=== PATIENT | female | born 1950 | race Caucasian/White ===

== ENCOUNTER → 2016-11-18 | Outpatient (CLI) | payer OTHER ==
[~2016-11-18] MED LIST: ACET-1311 PO; BISA10SU38 PR; CGN1 PO; CLR10 PO; DFLUDL100 PO; ERYOPO OPL; FERR325T PO; FLUC200T4 PO; GABA1CAP PO; GLIM2TAB2 PO; HLDI IM; INSDGI SC; INSDGIPEN SC; LEVO-17 PO; LEVO75TA PO; LORA-741 PO; LORA2INJ19 IM; MELA5CAP PO; MOML PO; NTRGSL/4 UT; NTRS PO; NVLGIPEN SC; OLAN-111 PO; RSPI25 IM; SENN-61 PO; SODI1ENE RE; SUPPLEMENT SHAKE PO; TGR200 PO; [UNRECOGNIZED DRUG - CODE] PO
== END ==
LOC: C.LABUPHEI 08:46
PROVIDERS: ATTEND Family Medicine
DX: E03.9 Hypothyroidism, unspecified (principal)

== ENCOUNTER 2016-12-07 07:18 | Emergency (ER) | payer OTHER ==
[~2016-12-07] VITALS: Ht 157.5 cm; Wt 47.0 kg
[~2016-12-07 07:18] MED LIST changes: -ACET-1311 PO; -BISA10SU38 PR; -DFLUDL100 PO; -ERYOPO OPL; -FLUC200T4 PO; -GABA1CAP PO; -GLIM2TAB2 PO; -HLDI IM; -INSDGI SC; -INSDGIPEN SC; -LEVO-17 PO; -LEVO75TA PO; -LORA-741 PO; -MOML PO; -NTRGSL/4 UT; -NTRS PO; -NVLGIPEN SC; -OLAN-111 PO; -SENN-61 PO; -SODI1ENE RE; -SUPPLEMENT SHAKE PO
[2016-12-07] MEDS ORDERED: LIDOCAINE/EPINEPH/TETRACAINE 1 EA SYR EXT STA (07:27)
[2016-12-07] MEDS ORDERED: LORAZEPAM 1 MG TAB PO STA (07:27)
[2016-12-07 07:28] VITALS: TEMP 36.6; Ht 157.5 cm; Wt 47.0 kg
[2016-12-07] MEDS ORDERED: LORAZEPAM 2 MG/ML 1 ML VIAL IM STA ×2 (07:38→07:59)
[2016-12-07] MEDS ORDERED: DIPHTHERIA/TETANUS/PERTUSSIS 0.5 ML SYR/VIAL IM. ONE (07:45)
--- NOTE | 2016-12-07 07:48 | EMERGENCY ROOM VISIT NOTE ---
ED Visit Note First contact with patient: 07:21 I have seen and examined this patient with Enoch Terry and generally agree with the treatment plan as discussed. Problem List Medical Problems: (1) Anxiety Status: Chronic (2) Depression Status: Chronic Current/Historical Medications Scheduled Benztropine Mesylate (Cogentin), 1 MG PO BID Bisacodyl (Dulcolax), 1 SUPP VT PRN Carbamazepine (Carbamazepine), 200 MG PO BID Ferrous Sulfate (Ferrous Sulfate), 325 MG PO BID Loratadine (Claritin), Unknown Dose PO HS Nitroglycerin (Nitrostat), 0.4 MG UT PRN Risperidone (Risperdal Consta), 25 MG IM Q2W [Santana/Cc], 2 TABS PO TID Scheduled PRN Lorazepam (Ativan), 1 ML IM Q4H PRN for Agitation Melatonin (Melatonin), 5 MG PO HS PRN for Insomnia Allergies Coded Allergies: Penicillins (Unverified Allergy, Unknown, UNKNOWN - PER OFFICE VISIT NOTE , 07/26/16) Aspirin (Unverified Adverse Reaction, Unknown, N/V PER OFFICE VISIT NOTE, 07/26/16) Phenytoin (Unverified Adverse Reaction, Unknown, N/V PER OFFICE VISIT NOTE , 07/26/16) Tramadol (Unverified Adverse Reaction, Unknown, DROWSINESS PER OFFICE VISIT NOTE, 07/26/16) Vital Signs Date Time Temp Pulse Resp B/P Pulse Ox O2 Delivery O2 Flow Rate FiO2 12/07/16 07:28 36.6 77 16 148/68 99 Room Air Departure Information Referrals Pedro Pablo Grimes (PCP) Patient Instructions My [facility]
[2016-12-07] MEDS ORDERED: LORA-741 PO (08:22)
[2016-12-07] MEDS ORDERED: RSPI25 IM (08:31)
[2016-12-07] MEDS ORDERED: FLUC200T4 PO (08:31)
--- NOTE | 2016-12-07 08:52 | DIAGNOSTIC IMAGING REPORT ---
CT HEAD WITHOUT CONTRAST (CT) CLINICAL HISTORY: Head trauma. Head pain. Scalp laceration. COMPARISON STUDY: 04/27/2016 TECHNIQUE: Axial CT of the brain is performed from the vertex to the skull base. IV contrast was not administered for this examination. CT DOSE: 1380.10 mGycm FINDINGS: No intra or extra-axial mass lesions are visualized. There is no CT evidence of acute cortical infarction. There is no evidence of midline shift. There is no acute hemorrhage. No calvarial fractures are visualized. There is posterior parietal scalp edema. There is a left frontal scalp laceration. There is no evidence of pathologic ventricular dilatation. There is a right mastoid effusion. IMPRESSION: 1. Posterior scalp edema, left frontal scalp laceration. 2. Right mastoid effusion 3. No evidence of acute intracranial injury Electronically signed by: Bob Tejada M.D. 12/07/2016 8:50 AM Dictated Date/Time: 12/07/2016 8:46 AM
[2016-12-07 10:20] VITALS: BP 128/78; PULSE 79; O2SAT 98
--- NOTE | 2016-12-07 10:34 | EMERGENCY ROOM VISIT NOTE ---
History First contact with patient: 07:21 Chief Complaint: FALL Stated Complaint: FALL, LACERATION TO HEAD History of Present Illness The patient is a 65 year old female who presents to the Emergency Room with complaints of witnessed fall at the [facility] where she lives that occurred about one hour ago. The patient was getting out of bed, and was walking he has normal. She suffered a mechanical fall laceration to her left-sided forehead. The patient has a history of schizoaffective disorder and is resistant to care at baseline. The patient does not report head, neck, chest, or extremity pain. No chest pain or shortness of breath. No palpitations before or after the event. She is not on blood thinners. The patient does not have other complaints. She is requesting food and discharge. Review of Systems More than 10 systems were reviewed and otherwise negative with the exception of history of present illness. Past Medical/Surgical History Medical Problems: (1) Anxiety (2) Arm fracture, left (3) Arthritis (4) Depression Family History No pertinent family history Social History Smoking Status: Unknown if Ever Smoked Marital Status: Housing Status: lives with significant other Occupation Status: retired Current/Historical Medications Scheduled Bisacodyl (Dulcolax), 1 SUPP DC PRN Fluconazole (Diflucan), 1 TAB PO DAILY Gabapentin (Neurontin), 1 CAP PO TID Levothyroxine Sodium (Synthroid), 1 TAB PO DAILY Loratadine (Claritin), 10 MG PO HS Nitroglycerin (Nitrostat), 0.4 MG UT PRN Risperidone (Risperdal Consta), 50 MG IM Q2W Senna (Senokot), 1 TAB PO DAILY Scheduled PRN Acetaminophen (Tylenol), 325 MG PO Q8 PRN for Pain or Fever Lorazepam (Ativan), 0.25 MG PO Q8 PRN for Anxiety/Agitation Magnesium Hydroxide (Milk Of Magnesia), 30 ML PO Q24H PRN for Constipation Allergies Coded Allergies: Penicillins (Unverified Allergy, Unknown, UNKNOWN - PER OFFICE VISIT NOTE , 12/07/16) Aspirin (Unverified Adverse Reaction, Unknown, N/V PER OFFICE VISIT NOTE, 12/07/16) Phenytoin (Unverified Adverse Reaction, Unknown, N/V PER OFFICE VISIT NOTE , 12/07/16) Tramadol (Unverified Adverse Reaction, Unknown, DROWSINESS PER OFFICE VISIT NOTE, 12/07/16) Physical Exam Vital Signs Date Time Temp Pulse Resp B/P Pulse Ox O2 Delivery O2 Flow Rate FiO2 12/07/16 07:28 36.6 77 16 148/68 99 Room Air Physical Exam VITALS: Vitals are noted on the nurse's note and reviewed by myself. Vital signs stable. GENERAL: Elderly-appearing white female who is mildly resistant to care. She is not distinctly combative, but is slightly agitated. This is reportedly her baseline. HEAD: 3.0 cm vertical laceration to the left side forehead. This does gape and will require repair. NECK: Supple without nuchal rigidity. No lymphadenopathy. No thyromegaly. Cervical spine is nontender. HEART: Regular rate and rhythm without murmurs gallops or rubs. LUNGS: Clear to auscultation bilaterally without wheezes, rales or rhonchi. No retractions or accessory muscle use. ABDOMEN: Positive normal bowel sounds x 4. Soft, nontender, without masses or organomegaly. No guarding or rebound tenderness. MUSCULOSKELETAL: No muscle atrophy, erythema, or edema noted. Full range of motion without joint tenderness in all extremities. NEURO: Patient was alert and oriented to person place and time. CN II through XII grossly intact. No focal neurological deficits Medical Decision & Procedures ER Provider Diagnostic Interpretation: CT HEAD WITHOUT CONTRAST (CT) CLINICAL HISTORY: Head trauma. Head pain. Scalp laceration. COMPARISON STUDY: 04/27/2016 TECHNIQUE: Axial CT of the brain is performed from the vertex to the skull base. IV contrast was not administered for this examination. CT DOSE: 1380.10 mGycm FINDINGS: No intra or extra-axial mass lesions are visualized. There is no CT evidence of acute cortical infarction. There is no evidence of midline shift. There is no acute hemorrhage. No calvarial fractures are visualized. There is posterior parietal scalp edema. There is a left frontal scalp laceration. There is no evidence of pathologic ventricular dilatation. There is a right mastoid effusion. IMPRESSION: 1. Posterior scalp edema, left frontal scalp laceration. 2. Right mastoid effusion 3. No evidence of acute intracranial injury Medications Administered Medications (Trade) Dose Ordered Sig/Nicci Route Start Time Stop Time Status Last Admin Dose Admin Tetracaine/ Epinephrine/ Lidocaine (L.e.t. Gel 4%/ 1:100/0.5%) 1 ea NOW STAT EXT 12/07/16 07:27 12/07/16 07:30 DC 12/07/16 07:54 1 EA Lorazepam (Ativan Inj) 1 mg NOW STAT IM 12/07/16 07:38 12/07/16 07:39 DC 12/07/16 07:53 1 MG Diphtheria/ Pertussis/Tetanus Vacc (Adacel Inj) 0.5 ml ONCE ONCE IM. 12/07/16 07:45 12/07/16 07:46 DC 12/07/16 07:54 0.5 ML Procedure Laceration repair. Patient elects to have their laceration repaired. Verbal consent was obtained to perform the procedure. There is an abundance of materials available for the procedure. Patient is not allergic to latex. Using sterile technique the wound was cleaned with Betadine. The area was sterilely draped. LET gel was used to anesthetize the forehead laceration. Once the patient was anesthetized, the wound was copiously irrigated under pressure with sterile saline. The wound was explored and there were no deep structures injured such as tendons, bone, or significant blood vessels. The laceration was repaired using 4 simple interrupted 5-0 nylon sutures with the wound edges being well approximated. Hemostasis was achieved. The area was cleaned with sterile saline and dressed with bacitracin ointment and bandage. The patient was given a tetanus booster. Patient tolerated the procedure well without complications. Blood loss was negligible. ED Course Physical exam and history were performed. Nursing notes and EMR were reviewed. Patient appears to have suffered a mechanical fall with laceration to her head. The patient does not appear toxic and is somewhat resistant to care. This is her baseline evidently. I did provide her 1 mg IM Ativan for comfort. After this she was able to rest comfortably for a CT scan of her head. Let gel was placed on her laceration, and this was repaired as above. Her tetanus was updated. The case was discussed with my attending physician, Dr. Mason, who also and apparently evaluated the patient. The patient's CT scan of the head does not show intracranial bleed, fracture, or other significant acute findings. The patient was able to rest very comfortably here in the ER. She was provided a meal tray and was able to eat and drink without difficulty. The patient remained in stable condition for several hours without any worsening of her symptoms. She is felt to be stable for transport back to [facility]. The patient will need a recheck of her condition in a few days. She was otherwise invited back to the ER with any new , worsening, or concerning symptoms. The chart was completed utilizing F2[employer] Speech Voice Recognition Software. Grammatical errors, random word insertions, pronoun errors, and incomplete sentences are an occasional consequence of this system due to software limitations, ambient noise, and hardware issues. Any formal questions or concerns about the content, text, or information contained within the body of this dictation should be directly addressed to the provider for clarification. . Medical Decision Differential diagnosis: Etiologies such as concussion, contusion, fracture, cardiopulmonary event, mechanical fall, subdural hematoma, epidural hematoma, intraparenchymal hemorrhage, as well as other traumatic pathologies were entertained. Impression Primary Impression: Fall Additional Impression: Scalp laceration Departure Information Dispostion Home / Self-Care Condition GOOD Forms HOME CARE DOCUMENTATION FORM, IMPORTANT VISIT INFORMATION Patient Instructions My [facility] Additional Instructions You were seen and evaluated today on an emergency basis only. This is not a substitute for, or an effort to provide, complete comprehensive medical care. It is not possible to recognize and treat all injuries or illnesses in a single emergency department visit. For this reason it is recommended that you followup with your primary care physician in the next 2-3 days for recheck of your condition. Keep wound clean and dry. Do not allow any crusting or dried blood to accumulate on sutures. If this occurs, use a mild soap/water on a Q-tip to clean the wound. Do not use Peroxide to clean the wound as this can delay healing Use an antibiotic ointment like Bacitracin for 3-4 days, then let wound dry. You may bathe and shower as normal, but DO NOT SOAK the wound. Suture removal in about 7 days with your Family Doctor or in the ER. Return sooner for any signs of infection, increasing redness, swelling, or drainage. You are welcome to return to the emergency department anytime with new, worsening, or concerning symptoms. Problem Qualifiers
[2017-01-02] MEDS ORDERED: ACET-1311 PO (08:22)
[2017-01-02] MEDS ORDERED: SENN-61 PO (08:22)
[2017-01-02] MEDS ORDERED: GABA1CAP PO (08:22)
[2017-01-02] MEDS ORDERED: CLR10 PO (08:31)
[2017-01-02] MEDS ORDERED: MOML PO (08:31)
[2017-01-02] MEDS ORDERED: LEVO75TA PO (08:31)
[2017-05-11] MEDS ORDERED: CLR10 PO (11:14)
[2017-05-11] MEDS ORDERED: GLIM2TAB2 PO (11:14)
[2017-05-11] MEDS ORDERED: INSDGI SC (11:14)
[2017-05-11] MEDS ORDERED: LEVO-17 PO (11:14)
[2017-05-13] MEDS ORDERED: NVLGIPEN SC (08:52)
[2017-05-13] MEDS ORDERED: OLAN-111 PO (08:52)
[2017-05-13] MEDS ORDERED: LORA-741 PO (08:52)
[2017-05-13] MEDS ORDERED: INSDGIPEN SC (08:52)
== END 2016-12-07 10:20 | disposition home or self-care (01) ==
LOC: EDBD 07:18 → C.EDB 07:19
DX: S01.81XA Laceration without foreign body of other part of head, initial encounter (principal); W19.XXXA Unspecified fall, initial encounter; Z23 Encounter for immunization; F41.9 Anxiety disorder, unspecified; F32.9 Major depressive disorder, single episode, unspecified; M19.90 Unspecified osteoarthritis, unspecified site; Z87.81 Personal history of (healed) traumatic fracture; Z79.899 Other long term (current) drug therapy; Z88.0 Allergy status to penicillin; Z88.6 Allergy status to analgesic agent; Z88.8 Allergy status to other drugs, medicaments and biological substances

== ENCOUNTER 2017-01-02 12:03 | Inpatient (IN) | payer OTHER ==
[~2017-01-02] VITALS: Ht 160 cm; Wt 41.3 kg
[~2017-01-02 12:03] MED LIST changes: +ACET-1311 PO; -CGN1 PO; -FERR325T PO; +FLUC200T4 PO; +GABA1CAP PO; +LEVO75TA PO; +LORA-741 PO; -LORA2INJ19 IM; -MELA5CAP PO; +MOML PO; +SENN-61 PO; -TGR200 PO; -[UNRECOGNIZED DRUG - CODE] PO
[2017-01-02] MEDS ORDERED: SUPPLEMENT SHAKE PO (12:28)
[2017-01-02] MEDS ORDERED: SODI1ENE RE (12:32)
[2017-01-02] MEDS ORDERED: HLDI IM (12:33)
--- NOTE | 2017-01-02 13:29 | EMERGENCY ROOM VISIT NOTE ---
History Report prepared by Gary: Eleazar Mcdonald Under the Supervision of: Dr. Thang Rankin M.D. First contact with patient: 13:18 Chief Complaint: OTHER COMPLAINT Stated Complaint: DECREASE FOOD INTAKE History of Present Illness The patient is a 66 year old female who presents to the Emergency Room with complaints of persistent decreased food intake the past few days. She is a resident at [facility]. Per the nursing staff, they were told that the patient fell this morning, and bumped her nose. Her tongue has also been swollen, and the physician at [facility] looked at it, and agreed that the patient should be seen here. Per the patient, her nose hurts a bit from the fall. She denies any abdominal pain, chest pain, or hip pain. Source of History: patient, [facility] notes, nursing staff Onset: Past few days Position: other (global - decreased food intake) Timing: other (persistent) Associated Symptoms: No abdominal pain, No chest pain Note: Associated symptoms: Fell this morning, nose pain from fall. Denies any hip pain. Review of Systems See HPI for pertinent positives & negatives. A total of 10 systems reviewed and were otherwise negative. Past Medical & Surgical Medical Problems: (1) Anxiety (2) Arm fracture, left (3) Arthritis (4) Depression Family History No pertinent family history Social History Smoking Status: Unknown if Ever Smoked Marital Status: Housing Status: [facility] Occupation Status: retired Current/Historical Medications Scheduled Bisacodyl (Dulcolax), 1 SUPP TN PRN Gabapentin (Neurontin), 1 CAP PO TID Levothyroxine Sodium (Synthroid), 1 TAB PO DAILY Loratadine (Claritin), 10 MG PO HS Nitroglycerin (Nitrostat), 0.4 MG UT PRN Senna (Senokot), 1 TAB PO DAILY Sodium Phosphates (Fleet Enema Six Pack), 1 DOSE RE UD [supplement shake], 1 DOSE PO TID Scheduled PRN Acetaminophen (Tylenol), 650 MG PO Q6 PRN for Pain or Fever Haloperidol Lactate (Haloperidol Lactate), 1 MG IM Q4 PRN for Agitation Magnesium Hydroxide (Milk Of Magnesia), 30 ML PO Q24H PRN for Constipation Allergies Coded Allergies: Penicillins (Unverified Allergy, Unknown, UNKNOWN - PER OFFICE VISIT NOTE , 01/02/17) Aspirin (Unverified Adverse Reaction, Unknown, N/V PER OFFICE VISIT NOTE, 01/02/17) Phenytoin (Unverified Adverse Reaction, Unknown, N/V PER OFFICE VISIT NOTE , 01/02/17) Tramadol (Unverified Adverse Reaction, Unknown, DROWSINESS PER OFFICE VISIT NOTE, 01/02/17) Physical Exam Vital Signs Date Time Temp Pulse Resp B/P Pulse Ox O2 Delivery O2 Flow Rate FiO2 01/02/17 15:44 60 01/02/17 15:16 61 22 148/79 97 Room Air 01/02/17 14:31 66 21 158/76 96 Room Air 01/02/17 13:35 37.3 01/02/17 12:10 75 01/02/17 12:09 37.0 78 16 137/74 95 Room Air Physical Exam GENERAL: Patient is chronically unwell appearing and in no distress. HEENT: Normocephalic atraumatic, mucous membranes moist, no nasal congestion, no scleral icterus. Has swelling of tongue and drooling, No difficulty breathing. White plaque over most of tongue. Slight bruise over bridge of nose. NECK: No stridor, no adenopathy, no meningismus, trachea is midline. LUNGS: No dyspnea. Clear to auscultation and equal bilaterally. No wheeze, no rhonchi. HEART: Regular rate and rhythm. No murmurs, rubs, gallops appreciated. ABDOMEN: Soft, nontender, bowel sounds positive, no masses appreciated, no peritonitis. BACK: No midline tenderness, no CVA tenderness EXTREMITIES: Normal motion all extremities, no cyanosis, no edema. NEUROLOGIC: Patient with dementia. no acute motor or sensory deficits, no focal weakness, cranial nerves grossly intact. SKIN: No rash, no jaundice, no diaphoresis. Medical Decision & Procedures ER Provider Diagnostic Interpretation: Radiology results and stated below per my review and radiologist interpretation: HEAD CT NONCONTRAST CT DOSE: 638.56 mGycm HISTORY: fall TECHNIQUE: Multiaxial CT images of the head were performed without the use of intravenous contrast. Automated exposure control was utilized for this study. Comparison: Head CT 12/07/2016. Findings: Persistent small right mastoid effusion. The paranasal sinuses and left mastoid air cells are clear. Mild posterior scalp swelling has improved. Mild nasal soft tissue swelling. The calvarium and skull base are intact. The ventricles and sulci are within normal limits. There is no mass, hematoma, midline shift, or acute infarct. Mild nasal bone deformity is likely old. Impression: No acute intracranial abnormality. Additional findings as described above. Electronically signed by: Clay Bay M.D. 01/02/2017 2:35 PM Dictated Date/Time: 01/02/2017 2:28 PM SINGLE VIEW CHEST CLINICAL HISTORY: Fall. FINDINGS: An AP, portable, upright chest radiograph is compared to study dated 07/26/2016. The examination is degraded by portable technique and patient rotation. The cardiomediastinal silhouette is unremarkable. There is atherosclerotic calcification of the thoracic aorta. Chronic interstitial thickening and mild apical scarring are unchanged. The lungs and pleural spaces are otherwise clear. No pneumothorax is seen. The skeletal structures are osteopenic. The bony thorax is grossly intact. Cholecystectomy clips are seen in the right upper quadrant. IMPRESSION: No active disease in the chest. Electronically signed by: Jonathon Khalil M.D. 01/02/2017 2:11 PM Dictated Date/Time: 01/02/2017 2:09 PM PELVIS 1 OR 2 VIEW ROUTINE CLINICAL HISTORY: / Pain. Trauma. COMPARISON: None. DISCUSSION: The bones and joint spaces appear intact. There is no evidence of fracture, dislocation or bony disease. There is no evidence for soft tissue swelling. IMPRESSION: Negative study. Electronically signed by: Kraig Whaley M.D. 01/02/2017 2:08 PM Dictated Date/Time: 01/02/2017 2:07 PM Laboratory Results 01/02/17 12:18 Red Blood Count 4.10, Mean Corpuscular Volume 85.6, Mean Corpuscular Hemoglobin 28.8, Mean Corpuscular Hemoglobin Concent 33.6, Mean Platelet Volume 12.5, Neutrophils (%) (Auto) 65.5, Lymphocytes (%) (Auto) 22.6, Monocytes (%) (Auto) 9.8, Eosinophils (%) (Auto) 1.4, Basophils (%) (Auto) 0.5, Neutrophils # (Auto) 3.62, Lymphocytes # (Auto) 1.25, Monocytes # (Auto) 0.54, Eosinophils # (Auto) 0.08, Basophils # (Auto) 0.03 01/02/17 12:18 Test 01/02/17 12:18 White Blood Count 5.53 K/uL (4.8-10.8) Red Blood Count 4.10 M/uL (4.2-5.4) Hemoglobin 11.8 g/dL (12.0-16.0) Hematocrit 35.1 % (37-47) Mean Corpuscular Volume 85.6 fL (80-100) Mean Corpuscular Hemoglobin 28.8 pg (25-34) Mean Corpuscular Hemoglobin Concent 33.6 g/dl (32-36) Platelet Count 137 K/uL (130-400) Mean Platelet Volume 12.5 fL (7.4-10.4) Neutrophils (%) (Auto) 65.5 % Lymphocytes (%) (Auto) 22.6 % Monocytes (%) (Auto) 9.8 % Eosinophils (%) (Auto) 1.4 % Basophils (%) (Auto) 0.5 % Neutrophils # (Auto) 3.62 K/uL (1.4-6.5) Lymphocytes # (Auto) 1.25 K/uL (1.2-3.4) Monocytes # (Auto) 0.54 K/uL (0.11-0.59) Eosinophils # (Auto) 0.08 K/uL (0-0.5) Basophils # (Auto) 0.03 K/uL (0-0.2) RDW Standard Deviation 42.4 fL (36.4-46.3) RDW Coefficient of Variation 13.5 % (11.5-14.5) Immature Granulocyte % (Auto) 0.2 % Immature Granulocyte # (Auto) 0.01 K/uL (0.00-0.02) Anion Gap 10.0 mmol/L (3-11) Est Creatinine Clear Calc Drug Dose 29.6 ml/min Estimated GFR () 49.2 Estimated GFR (Non- 42.4 BUN/Creatinine Ratio 19.8 (10-20) Calcium Level 9.8 mg/dl (8.5-10.1) Magnesium Level 2.3 mg/dl (1.8-2.4) Total Bilirubin 0.5 mg/dl (0.2-1) Direct Bilirubin 0.1 mg/dl (0-0.2) Aspartate Amino Transf (AST/SGOT) 20 U/L (15-37) Alanine Aminotransferase (ALT/SGPT) 31 U/L (12-78) Alkaline Phosphatase 83 U/L (45-117) C-Reactive Protein < 0.29 mg/dl (0-0.29) Total Protein 6.5 gm/dl (6.4-8.2) Albumin 3.5 gm/dl (3.4-5.0) Laboratory results as reviewed by me. Medications Administered Medications (Trade) Dose Ordered Sig/Nicci Route Start Time Stop Time Status Last Admin Dose Admin Fluconazole/ Sodium Chloride/ Prmx (Diflucan IV/ Premixed Nss) 100 ml @ 100 mls/hr NOW STAT IV 01/02/17 14:49 01/02/17 15:48 DC 01/02/17 15:14 100 MLS/HR ECG Indication: other (tongue swelling) Rate (beats per minute): 67 Rhythm: normal sinus Findings: no acute ischemic change, no ectopy, other (QTC of 420) ED Course 1321: The patient was evaluated in room A2. A complete history and physical exam was performed. 1343: I reevaluated the patient and she is stable. 1527: I discussed the patient with Dr. Eric WHITTINGTON hospitalist - he will evaluate the patient for further treatment. 1528: Upon reevaluation, the patient is stable. Discussed results and treatment plan with the patient. She verbalized understanding and agreement with the treatment plan. The patient will be evaluated for further management. Medical Decision Differential: Sepsis, Infectious (UTI/Pneumonia/Meningitis/etc), Metabolic/ Electrolyte Abnormality, Cardiac, Hepatic, Endocrine, Toxicologic, Neurologic, amongst other pathologies entertained. 66 [facility] old female [facility] because she has stopped eating and now has increasing tongue swelling. Reportedly fall yesterday resulting in bruise over bridge of nose. CT head negative for acute findings as are CXR and pelvis xray. Labs unremarkable. She is drooling with a large tongue that appears to have plaque all over it consistent with thrush. She will be unable to swallow anything. She is maintaining airway without issue. She does not appear to be having acute allergic reaction and I suspect swelling is more due to inflammation due to thrush. Could be angioedema but literature would point to no clear emergent treatment unless intubation which she does not require currently. Will bring in for further evaluation and treatment. Consults Time Called: 1520 Consulting Physician: Dr. Eric WHITTINGTON hospitalist Returned Call: [phone] I discussed the patient with Dr. Eric WHITTINGTON hospitalist - he will evaluate the patient for further treatment. Impression Primary Impression: Oral candidiasis Additional Impressions: Tongue swelling Inability to swallow Fall Scribe Attestation The scribe's documentation has been prepared under my direction and personally reviewed by me in its entirety. I confirm that the note above accurately reflects all work, treatment, procedures, and medical decision making performed by me. Departure Information Dispostion Being Evaluated By Hospitalist Referrals Pedro Pablo Grimes (PCP) Patient Instructions My [facility] Problem Qualifiers Additional Impressions: Fall Encounter type: initial encounter Qualified Codes: W19.XXXA - Unspecified fall, initial encounter
[2017-01-02 13:42] LABS: BASO % 0.5 %; BASO ABS # 0.03 K/uL (0-0.2); COMPLETE YES; EOS % 1.4 %; HEMATOCRIT 35.1 % (37-47); IG% 0.2 %; LYMPH % 22.6 %; LYMPH ABS # 1.25 K/uL (1.2-3.4); MEAN CELL VOLUME 85.6 fL (80-100); MEAN CORPUSCULAR HEMOGLOBIN 28.8 pg (25-34); MEAN CORPUSCULAR HGB CONC 33.6 g/dl (32-36); MEAN PLATELET VOLUME 12.5 fL (7.4-10.4); MONO % 9.8 %; NEUT % 65.5 %; PLATELET COUNT 137 K/uL (130-400); WHITE BLOOD COUNT 5.53 K/uL (4.8-10.8)
[2017-01-02 13:52] LABS: ALT/SGPT 31 U/L (12-78); AST/SGOT 20 U/L (15-37); BLOOD UREA NITROGEN 26 mg/dl (7-18); BUN/CREATININE RATIO 19.8 (10-20); C-REACTIVE PROTEIN < 0.29 mg/dl (0-0.29); CALCIUM 9.8 mg/dl (8.5-10.1); CARBON DIOXIDE 27 mmol/L (21-32); CHLORIDE 104 mmol/L (98-107); GLUCOSE 281 mg/dl (70-99); MAGNESIUM 2.3 mg/dl (1.8-2.4); POTASSIUM 3.8 mmol/L (3.5-5.1); SODIUM 141 mmol/L (136-145)
[2017-01-02 13:54] LABS: ALKALINE PHOSPHATASE 83 U/L (45-117)
[2017-01-02] MEDS ORDERED: NTRGSL/4 UT (14:01)
--- NOTE | 2017-01-02 14:09 | DIAGNOSTIC IMAGING REPORT ---
PELVIS 1 OR 2 VIEW ROUTINE CLINICAL HISTORY: / Pain. Trauma. COMPARISON: None. DISCUSSION: The bones and joint spaces appear intact. There is no evidence of fracture, dislocation or bony disease. There is no evidence for soft tissue swelling. IMPRESSION: Negative study. Electronically signed by: Kraig Whaley M.D. 01/02/2017 2:08 PM Dictated Date/Time: 01/02/2017 2:07 PM
--- NOTE | 2017-01-02 14:12 | DIAGNOSTIC IMAGING REPORT ---
SINGLE VIEW CHEST CLINICAL HISTORY: Fall. FINDINGS: An AP, portable, upright chest radiograph is compared to study dated 07/26/2016. The examination is degraded by portable technique and patient rotation. The cardiomediastinal silhouette is unremarkable. There is atherosclerotic calcification of the thoracic aorta. Chronic interstitial thickening and mild apical scarring are unchanged. The lungs and pleural spaces are otherwise clear. No pneumothorax is seen. The skeletal structures are osteopenic. The bony thorax is grossly intact. Cholecystectomy clips are seen in the right upper quadrant. IMPRESSION: No active disease in the chest. Electronically signed by: Jonathon Khalil M.D. 01/02/2017 2:11 PM Dictated Date/Time: 01/02/2017 2:09 PM
--- NOTE | 2017-01-02 14:36 | DIAGNOSTIC IMAGING REPORT ---
HEAD CT NONCONTRAST CT DOSE: 638.56 mGycm HISTORY: fall TECHNIQUE: Multiaxial CT images of the head were performed without the use of intravenous contrast. Automated exposure control was utilized for this study. Comparison: Head CT 12/07/2016. Findings: Persistent small right mastoid effusion. The paranasal sinuses and left mastoid air cells are clear. Mild posterior scalp swelling has improved. Mild nasal soft tissue swelling. The calvarium and skull base are intact. The ventricles and sulci are within normal limits. There is no mass, hematoma, midline shift, or acute infarct. Mild nasal bone deformity is likely old. Impression: No acute intracranial abnormality. Additional findings as described above. Electronically signed by: Clay Bay M.D. 01/02/2017 2:35 PM Dictated Date/Time: 01/02/2017 2:28 PM
[2017-01-02] MEDS ORDERED: FLUCONAZOLE / NSS 200 MG in PREMIXED NSS 100 ML IV STA (14:49)
[2017-01-02] MEDS ORDERED: BISA10SU38 PR (16:10)
[2017-01-02] MEDS ORDERED: NITROGLYCERIN 0.4 MG SL PER TAB CHARGE UT PRN (17:00)
[2017-01-02] MEDS ORDERED: ACETAMINOPHEN 325 MG TAB PO PRN (17:00)
[2017-01-02] MEDS ORDERED: POLYETHYLENE (MIRALAX) 17 GM PACK PO PRN (17:00)
[2017-01-02] MEDS ORDERED: HALOPERIDOL LACTATE 5 MG/ML 1 ML VIAL IM PRN (17:00)
[2017-01-02] MEDS ORDERED: MAGNESIUM HYDROXIDE SUSP 30 ML UDC PO PRN ×2 (17:00)
[2017-01-02 18:02] LABS: INR 1.1 (0.9-1.1); PROTHROMBIN TIME (PATIENT) 11.3 SECONDS (9.0-12.0)
--- NOTE | 2017-01-02 18:08 | History and Physical ---
History & Physical Date & Time of Service: Jan 02, 2017 at 17:08 Chief Complaint: Decrease Food Intake Primary Care Physician: Pedro Pablo Grimes History of Present Illness Source: patient This is a 66 y/o male presented to the hospital from [facility] complaining of decrease appetite. Most of the history was obtain for the [facility] nurse and ED notes. According to the nurse per past few days her PO intake has decreased. The nurse was informed that she fell down this morning and hit her nose. Her tongue has also been swollen and the patient was examined by the physician and agreed to send to the hospital. Patient denies any pain when seen by me. She denies any pain with swallowing, throat pain, dysphagia, nausea, or vomiting. For most of my questions, she would just stare at me without answering anything. Head CT, CXR and plevic X-ray performed at the ED are unremarkable. Past Medical/Surgical History Medical Problems: (1) Anxiety Status: Chronic (2) Depression Status: Chronic (3) Alzheimer's disease (4) Epilepsy with seizure (5) CKD (6) HTN (7) HLD (8) Hypothyroidism Family History No pertinent family history Social History Smoking Status: Unknown if Ever Smoked Marital Status: Occupational Status: retired Allergies Coded Allergies: Penicillins (Unverified Allergy, Unknown, UNKNOWN - PER OFFICE VISIT NOTE , 01/02/17) Aspirin (Unverified Adverse Reaction, Unknown, N/V PER OFFICE VISIT NOTE, 01/02/17) Phenytoin (Unverified Adverse Reaction, Unknown, N/V PER OFFICE VISIT NOTE , 01/02/17) Tramadol (Unverified Adverse Reaction, Unknown, DROWSINESS PER OFFICE VISIT NOTE, 01/02/17) Home Medications Scheduled Bisacodyl (Dulcolax), 1 SUPP AK PRN Gabapentin (Neurontin), 1 CAP PO TID Levothyroxine Sodium (Synthroid), 1 TAB PO DAILY Loratadine (Claritin), 10 MG PO HS Nitroglycerin (Nitrostat), 0.4 MG UT PRN Senna (Senokot), 1 TAB PO DAILY Sodium Phosphates (Fleet Enema Six Pack), 1 DOSE RE UD [supplement shake], 1 DOSE PO TID Scheduled PRN Acetaminophen (Tylenol), 650 MG PO Q6 PRN for Pain or Fever Haloperidol Lactate (Haloperidol Lactate), 1 MG IM Q4 PRN for Agitation Magnesium Hydroxide (Milk Of Magnesia), 30 ML PO Q24H PRN for Constipation Review of Systems Couldn't obtain full ROS given patient's poor mentation Constitutional: No fever Respiratory: No cough, No shortness of breath Abdomen: No pain Physical Exam Vital Signs Date Time Temp Pulse Resp B/P Pulse Ox O2 Delivery O2 Flow Rate FiO2 01/02/17 15:44 60 01/02/17 15:16 61 22 148/79 97 Room Air 01/02/17 14:31 66 21 158/76 96 Room Air 01/02/17 13:35 37.3 01/02/17 12:10 75 01/02/17 12:09 37.0 78 16 137/74 95 Room Air General Appearance: WD/WN, no apparent distress Head: normocephalic, atraumatic Eyes: PERRL, sclerae normal ENT: + pertinent finding (Bruise was noted on the bridge of the nose, lips are slightly swollen, white plaque noted over the tongue.) Neck: supple, trachea midline Respiratory/Chest: chest non-tender, lungs clear, normal breath sounds, no respiratory distress, no accessory muscle use Cardiovascular: regular rate, rhythm, no edema Abdomen/GI: normal bowel sounds, non tender, soft Extremities/Musculoskelatal: normal inspection, no pedal edema, non-tender Neurologic/Psych: alert, + disoriented Skin: normal color, warm/dry Diagnostics Laboratory Results Results Past 24 Hours Test 01/02/17 12:18 Range/Units White Blood Count 5.53 4.8-10.8 K/uL Red Blood Count 4.10 4.2-5.4 M/uL Hemoglobin 11.8 12.0-16.0 g/dL Hematocrit 35.1 37-47 % Mean Corpuscular Volume 85.6 80-100 fL Mean Corpuscular Hemoglobin 28.8 25-34 pg Mean Corpuscular Hemoglobin Concent 33.6 32-36 g/dl Platelet Count 137 130-400 K/uL Mean Platelet Volume 12.5 7.4-10.4 fL Neutrophils (%) (Auto) 65.5 % Lymphocytes (%) (Auto) 22.6 % Monocytes (%) (Auto) 9.8 % Eosinophils (%) (Auto) 1.4 % Basophils (%) (Auto) 0.5 % Neutrophils # (Auto) 3.62 1.4-6.5 K/uL Lymphocytes # (Auto) 1.25 1.2-3.4 K/uL Monocytes # (Auto) 0.54 0.11-0.59 K/uL Eosinophils # (Auto) 0.08 0-0.5 K/uL Basophils # (Auto) 0.03 0-0.2 K/uL RDW Standard Deviation 42.4 36.4-46.3 fL RDW Coefficient of Variation 13.5 11.5-14.5 % Immature Granulocyte % (Auto) 0.2 % Immature Granulocyte # (Auto) 0.01 0.00-0.02 K/uL Sodium Level 141 136-145 mmol/L Potassium Level 3.8 3.5-5.1 mmol/L Chloride Level 104 98-107 mmol/L Carbon Dioxide Level 27 21-32 mmol/L Anion Gap 10.0 3-11 mmol/L Blood Urea Nitrogen 26 7-18 mg/dl Creatinine 1.30 0.60-1.20 mg/dl Est Creatinine Clear Calc Drug Dose 29.6 ml/min Estimated GFR () 49.2 Estimated GFR (Non- 42.4 BUN/Creatinine Ratio 19.8 10-20 Random Glucose 281 70-99 mg/dl Calcium Level 9.8 8.5-10.1 mg/dl Magnesium Level 2.3 1.8-2.4 mg/dl Total Bilirubin 0.5 0.2-1 mg/dl Direct Bilirubin 0.1 0-0.2 mg/dl Aspartate Amino Transf (AST/SGOT) 20 15-37 U/L Alanine Aminotransferase (ALT/SGPT) 31 12-78 U/L Alkaline Phosphatase 83 45-117 U/L C-Reactive Protein < 0.29 0-0.29 mg/dl Total Protein 6.5 6.4-8.2 gm/dl Albumin 3.5 3.4-5.0 gm/dl Diagnostic Radiology Patient Name: KANDI CUNNINGHAM Unit Number: [id number] Dictated: 01/02/171427 Transcribed: 01/02/171427 YUE Printed Date/Time: [~ rep prt dt]/[~ rep prt tm] [~ rep ct labl] - [~ rep ct ivnm] [facility] [place] [place] [address] Dictated: 01/02/178 Transcribed: 01/02/17 142 [facility] Printed Date/Time: [~ rep prt dt]/[~ rep prt tm] [~ rep ct labl] - [~ rep ct ivnm] HEAD CT NONCONTRAST CT DOSE: 638.56 mGycm HISTORY: fall TECHNIQUE: Multiaxial CT images of the head were performed without the use of intravenous contrast. Automated exposure control was utilized for this study. Comparison: Head CT 12/07/2016. Findings: Persistent small right mastoid effusion. The paranasal sinuses and left mastoid air cells are clear. Mild posterior scalp swelling has improved. Mild nasal soft tissue swelling. The calvarium and skull base are intact. The ventricles and sulci are within normal limits. There is no mass, hematoma, midline shift, or acute infarct. Mild nasal bone deformity is likely old. Impression: No acute intracranial abnormality. Additional findings as described above. Electronically signed by: Clay [place] M.D. 01/02/2017 2:35 PM Dictated Date/Time: 01/02/2017 2:28 PM The status of this report is Signed. Draft = Not yet reviewed or approved by Radiologist. Signed = Reviewed and approved by Radiologist. <AttendingPhy></AttendingPhy> <FamilyPhy>Heir Sydneymariah</FamilyPhy> < PrimaryPhy>HeartPedro Pablo santacruz</PrimaryPhy> <UnitNumber>[id number]</UnitNumber > <VisitNumber>[id number]</VisitNumber> <PatientName>KANDI CUNNINGHAM</ PatientName> <DateOfBirth>1950</DateOfBirth> <Location>[facility]</Location> < ServiceDate>01/02/17</ServiceDate> <MNE>ESINDI</MNE> <OrderingPhy>Thang Rankin M.D.</OrderingPhy> <OrderingPhyMNE>f rep ord dr johnson</OrderingPhyMNE> < DictatingPhyMNE>f rep dict dr johnson</DictatingPhyMNE> <CCListMNE>f rep ct mne</ CCListMNE> <AdmittingPhyMNE>f pt admit dr johnson</AdmittingPhyMNE> <AttendingPhyMNE >f pt attend dr johnson</AttendingPhyMNE> <ConsultingPhyMNE>f pt consult dr johnson</ConsultingPhyMNE> <FamilyPhyMNE>f pt fam dr johnson</FamilyPhyMNE> <OtherPhyMNE>f pt other dr johnson</OtherPhyMNE> < PrimaryPhyMNE>f pt prim care dr johnson</PrimaryPhyMNE> <ReferringPhyMNE>f pt referring dr johnson</ReferringPhyMNE> Patient Name: KANDI CUNNINGHAM Unit Number: [id number] Dictated: 01/02/171408 Transcribed: 01/02/171408 EV Printed Date/Time: [~ rep prt dt]/[~ rep prt tm] [~ rep ct labl] - [~ rep ct ivnm] [facility] Radiology Department [place] [id number] Dictated: 01/02/171408 Transcribed: 01/02/171408 EV Printed Date/Time: [~ rep prt dt]/[~ rep prt tm] [~ rep ct labl] - [~ rep ct ivnm] SINGLE VIEW CHEST CLINICAL HISTORY: Fall. FINDINGS: An AP, portable, upright chest radiograph is compared to study dated 07/26/2016. The examination is degraded by portable technique and patient rotation. The cardiomediastinal silhouette is unremarkable. There is atherosclerotic calcification of the thoracic aorta. Chronic interstitial thickening and mild apical scarring are unchanged. The lungs and pleural spaces are otherwise clear. No pneumothorax is seen. The skeletal structures are osteopenic. The bony thorax is grossly intact. Cholecystectomy clips are seen in the right upper quadrant. IMPRESSION: No active disease in the chest. Electronically signed by: Jonathon Khalil M.D. 01/02/2017 2:11 PM Dictated Date/Time: 01/02/2017 2:09 PM The status of this report is Signed. Draft = Not yet reviewed or approved by Radiologist. Signed = Reviewed and approved by Radiologist. <AttendingPhy></AttendingPhy> <FamilyPhy>Pedro Pablo Grimes</FamilyPhy> < PrimaryPhy>[employer]ear[employer]ександр[employer]</PrimaryPhy> <UnitNumber>[id number]</UnitNumber > <VisitNumber>[id number]</VisitNumber> <PatientName>KANDI CUNNINGHAM</ PatientName> <DateOfBirth>1950</DateOfBirth> <Location>[facility]</Location> < ServiceDate>01/02/17</ServiceDate> <MNE>ESINDI</MNE> <OrderingPhy>Thang Rankin M.D.</OrderingPhy> <OrderingPhyMNE>f rep ord dr johnson</OrderingPhyMNE> < DictatingPhyMNE>f rep dict dr johnson</DictatingPhyMNE> <CCListMNE>f rep ct mne</ CCListMNE> <AdmittingPhyMNE>f pt admit dr johnson</AdmittingPhyMNE> <AttendingPhyMNE >f pt attend dr johnson</AttendingPhyMNE> <ConsultingPhyMNE>f pt consult dr johnson</ConsultingPhyMNE> <FamilyPhyMNE>f pt fam dr johnson</FamilyPhyMNE> <OtherPhyMNE>f pt other dr johnson</OtherPhyMNE> < PrimaryPhyMNE>f pt prim care dr johnson</PrimaryPhyMNE> <ReferringPhyMNE>f pt referring dr johnson</ReferringPhyMNE> Patient Name: KANDI CUNNINGHAM Unit Number: [id number] Dictated: 01/02/171406 Transcribed: 01/02/17 140 MS Printed Date/Time: [~ rep prt dt]/[~ rep prt tm] [~ rep ct labl] - [~ rep ct ivnm] [facility] [place] [place] [address] Dictated: 01/02/171406 Transcribed: 01/02/17 1407 MS Printed Date/Time: [~ rep prt dt]/[~ rep prt tm] [~ rep ct labl] - [~ rep ct ivnm] PELVIS 1 OR 2 VIEW ROUTINE CLINICAL HISTORY: / Pain. Trauma. COMPARISON: None. DISCUSSION: The bones and joint spaces appear intact. There is no evidence of fracture, dislocation or bony disease. There is no evidence for soft tissue swelling. IMPRESSION: Negative study. Electronically signed by: Kraig Whaley M.D. 01/02/2017 2:08 PM Dictated Date/Time: 01/02/2017 2:07 PM The status of this report is Signed. Draft = Not yet reviewed or approved by Radiologist. Signed = Reviewed and approved by Radiologist. <AttendingPhy></AttendingPhy> <FamilyPhy>[facility]</FamilyPhy> < PrimaryPhy>[facility] Anderson[facility]</PrimaryPhy> <UnitNumber>[id number]</UnitNumber > <VisitNumber>[id number]</VisitNumber> <PatientName>KANDI CUNNINGHAM</ PatientName> <DateOfBirth>1950</DateOfBirth> <Location>[facility]</Location> < ServiceDate>01/02/17</ServiceDate> <MNE>ESINDI</MNE> <OrderingPhy>Thang Rankin M.D.</OrderingPhy> <OrderingPhyMNE>f rep ord dr johnson</OrderingPhyMNE> < DictatingPhyMNE>f rep dict dr johnson</DictatingPhyMNE> <CCListMNE>f rep ct elizabeth</ CCListMNE> <AdmittingPhyMNE>f pt admit dr johnson</AdmittingPhyMNE> <AttendingPhyMNE >f pt attend dr johnson</AttendingPhyMNE> <ConsultingPhyMNE>f pt consult dr johnson</ConsultingPhyMNE> <FamilyPhyMNE>f pt fam dr johnson</FamilyPhyMNE> <OtherPhyMNE>f pt other dr johnson</OtherPhyMNE> < PrimaryPhyMNE>f pt prim care dr johnson</PrimaryPhyMNE> <ReferringPhyMNE>f pt referring dr johnson</ReferringPhyMNE> CXR normal Impression Assessment and Plan This is a 66 y/o female presented to the hospital from [facility] complaining of decrease in appetite. 1. Oral candidiasis - Decrease appetite mostly likely secondary to oral thrush. - Will start on IV Fluconazole 200mg - Magic mouthwash - IVF NSS+20meq @100mls/hr given decrease in appetite - Continue to monitor her 2. Hypothyroidism - Will continue Synthroid 75mcg daily 3. Neuropathic pain - C/w Gabapentin 100mg TID 4. DVT prophylaxis - Heparin SQ 5. Code Status - Full code - I called the [facility] and it seems like they don't have information at file. Her sister (Nancy Dolan) is the power of wild animal caretaker. I try to contact her but couldn't get hold of her. Would recommend to call the sister and confirm the code status. I agree with PA assessment and plan and have seen and examined pt myself Poor historian VSS Noted white plaques on tongue Agree with IV fluconazole Agree with IVF for DERRICK Likely DC in next 24 hrs Level of Care Med/Surg Resuscitation Status FULL RESUSCITATION VTE Prophylaxis VTE Risk Assessment Done? Y/N: Yes Risk Level: Moderate Given or contraindicated: Unfractionated heparin SQ Note About 30 minutes
[2017-01-02 19:56] VITALS: BP 125/63; TEMP 36.4; O2SAT 98
[2017-01-02 20:07] VITALS: Ht 160 cm; Wt 41.3 kg
[2017-01-02] MEDS ORDERED: INFLUENZA ADMINISTRATION CHARGE ONE (21:00)
[2017-01-02] MEDS: HEPARIN SOD 5000 UNIT/0.5 ML CARP SQ SCH (21:00)
[2017-01-02] MEDS ORDERED: PNEUMOCOCCAL POLYSACCHARIDES 25 MCG/0.5 ML VIAL/SYR IM. ONE (21:00)
[2017-01-02] MEDS ORDERED: PNEUMOCOCCAL ADMINISTRATION CHARGE ONE (21:00)
[2017-01-02] MEDS: LORATADINE 10 MG TAB PO SCH (21:00)
[2017-01-02] MEDS: GABAPENTIN 100 MG CAP PO SCH (21:00)
[2017-01-02] MEDS ORDERED: INFLUENZA VIRUS QUAD VACCINE 0.5 ML SYR IM. ONE (21:00)
[2017-01-02] MEDS ORDERED: MAGIC MOUTHWASH PO SCH (21:00)
[2017-01-02] MEDS: NSS + 20MEQ KCL 1000ML 1,000 ML IV SCH (21:30)
[2017-01-02] MEDS: DEXAMETHASONE CONC SOLN 3.75 MG, NYSTATIN SUSP 30 ML, DiphenhydrAMINE HCL SYRUP 300 MG,... PO SCH ×5 (22:10)
[2017-01-02] MEDS ORDERED: HALOPERIDOL LACTATE 5 MG/ML 1 ML VIAL IM STA (22:12)
[2017-01-02] MEDS ORDERED: NURSING VERBAL MED ORDER ONE (22:15)
[2017-01-03 00:11] VITALS: BP 111/65; PULSE 87; TEMP 36.8; O2SAT 96
[2017-01-03] MEDS: HALOPERIDOL LACTATE 5 MG/ML 1 ML VIAL IM PRN ×2 (02:27→14:34)
[2017-01-03] MEDS: NSS + 20MEQ KCL 1000ML 1,000 ML IV SCH ×2 (04:58→16:00)
[2017-01-03 08:00] VITALS: O2SAT 96
[2017-01-03 08:06] VITALS: BP 133/76; PULSE 68; TEMP 36.4; O2SAT 100
[2017-01-03] MEDS: HEPARIN SOD 5000 UNIT/0.5 ML CARP SQ SCH ×2 (09:00→20:33)
[2017-01-03] MEDS ORDERED: LEVOTHYROXINE 75 MCG TAB PO SCH (09:00)
[2017-01-03] MEDS: DEXAMETHASONE CONC SOLN 3.75 MG, NYSTATIN SUSP 30 ML, DiphenhydrAMINE HCL SYRUP 300 MG,... PO SCH ×10 (09:00→20:42)
[2017-01-03] MEDS: SENNA 8.6 MG TAB PO SCH (09:00)
[2017-01-03] MEDS: GABAPENTIN 100 MG CAP PO SCH ×3 (09:00→20:40)
--- NOTE | 2017-01-03 10:04 | Clinical Documentation Query ---
CLINICAL DOCUMENTATION QUERY Dr. ALLISON, In your clinical opinion does this patient have: ( ) Chronic kidney disease, stage 3 ( ) Other explanation of clinical findings (Please Explain) ( ) Unable to determine (Please Define) ( ) Need to Discuss ( ) Not Agree The medical record reflects the following clinical findings, treatment, and risk factors. Clinical Indicators: 66 yo female presenting with oral candidiasis. H/P indicates pt with hx of CKD. Review of historical GFR range over the past 2 years shows 30.9-42.7. Treatment: monitor PRP's Risk Factors: age, HTN Please clarify and document your clinical opinion in the progress notes and discharge summary. Terms such as "probable", "suspected", "likely", "questionable", "possible", or "still to be ruled out" are acceptable. IF IN AGREEMENT, YOU MUST DOCUMENT ABOVE DIAGNOSTIC STATEMENT IN DAILY PROGRESS NOTES AND DISCHARGE SUMMARY. This document is not part of the patient's record. Thank You, Liza Devlin, RN [phone]
[2017-01-03 13:13] LABS: BUN/CREATININE RATIO 19.9 (10-20); CALCIUM 8.8 mg/dl (8.5-10.1); CREATININE 1.1 mg/dl (0.60-1.20); POTASSIUM 3.8 mmol/L (3.5-5.1)
[2017-01-03 14:04] LABS: HEMATOCRIT 35.4 % (37-47); MEAN CELL VOLUME 85.9 fL (80-100); MEAN CORPUSCULAR HEMOGLOBIN 29.1 pg (25-34); MEAN CORPUSCULAR HGB CONC 33.9 g/dl (32-36); PLATELET COUNT 123 K/uL (130-400); RED BLOOD COUNT 4.12 M/uL (4.2-5.4); WHITE BLOOD COUNT 5.02 K/uL (4.8-10.8)
[2017-01-03] MEDS: FLUCONAZOLE / NSS 200 MG in PREMIXED NSS 100 ML IV SCH (16:13)
--- NOTE | 2017-01-03 16:34 | Palliative Care Consultation ---
Consultation Date of Consultation: Jan 03, 2017. Requesting Physician: Dr. Mulligan Attending Physician: Dr. Mulligan Reason for Consultation: Goals of care History of Present Illness This 66 year old female patient presented to the ED yesterday with complaints of poor PO intake, a fall on the day of admission. Patient is a poor historian with a history of Alzheimer's dementia, resides in the [facility] dementia unit at [facility], so history was obtained from record. Apparently the patient had not been taking in much PO for the last few days, had fallen and hit her nose, also noted to have a swollen tongue so she was sent to the ED. Head CT, CXR, and pelvic xray all unremarkable in the ED. She was noted to have white plaques on her tongue, she is being treated for oral candidiasis. Her behavioral symptoms of dementia have worsened while being in the hospital and patient has been refusing all medical treatment including personal care, medications, lab draws and has pulled multiple IVs out of her arms. Palliative care consulted to establish goals of care. I met with the patient in her room. She was trying to get OOB, restless and agitated. Stated, "I just want to . I need to get up." Patient was very unsteady on feet and pushing staff away from her. She was given 1mg IM Haldol by nursing staff and we eventually did get her back in the bed. ROS not able to be obtained but she did state she was not having pain. I called the patient's sister, Nancy Dolan ([phone]), and had a long conversation with her about patient's condition and goals of care. Nancy stated to me that she does not believe this is dementia, that it is in fact behavioral due to the patient' s intellectual disability that she's had her whole life. Nancy stated that she still has hope of her sister "reentering society" and possibly living in an apartment with caregivers. I expressed my concern that the patient's dementia is in fact progressing and that we are causing unwanted stress and anxiety by keeping her in the hospital. Nancy agreed and said that she would like to get the patient out of the hospital. However, she is not willing to say that she does not want the patient to come back to the hospital if indicated. For now, the goal is to get the patient back to the [facility] and eventually Nancy would like her to be at [facility] in [place]. Past Medical/Surgical History Medical History: Alzheimer's dementia Anxiety/depression Intellectual disability per the patient's sister/POA Epilepsy with seizure CKD HTN HLD Hypothyroidism Social History Smoking Status: Unknown if Ever Smoked Marital Status: Occupation Status: retired Review of Systems unable to obtain Allergies Coded Allergies: Penicillins (Unverified Allergy, Unknown, UNKNOWN - PER OFFICE VISIT NOTE , 01/02/17) Aspirin (Unverified Adverse Reaction, Unknown, N/V PER OFFICE VISIT NOTE, 01/02/17) Phenytoin (Unverified Adverse Reaction, Unknown, N/V PER OFFICE VISIT NOTE , 01/02/17) Tramadol (Unverified Adverse Reaction, Unknown, DROWSINESS PER OFFICE VISIT NOTE, 01/02/17) Medications Current Inpatient Medications Medications (Trade) Dose Ordered Sig/Nicci Route Start Time Stop Time Status Last Admin Dose Admin Acetaminophen (Tylenol Tab) 650 mg Q4H PRN PO 01/02/17 17:00 02/01/17 16:59 Magnesium Hydroxide (Milk Of Magnesia Susp) 30 ml Q6H PRN PO 01/02/17 17:00 02/01/17 16:59 Polyethylene (Miralax Powder Packet) 17 gm DAILY PRN PO 01/02/17 17:00 02/01/17 16:59 Heparin Sodium (Porcine) (Heparin Sq 5000 Unit/0.5ml) 5,000 unit Q12H SQ 01/02/17 21:00 02/01/17 20:59 Gabapentin (Neurontin Cap) 100 mg TID PO 01/02/17 21:00 02/01/17 20:59 Loratadine (Claritin Tab) 10 mg HS PO 01/02/17 21:00 02/01/17 20:59 Magnesium Hydroxide (Milk Of Magnesia Susp) 30 ml Q24H PRN PO 01/02/17 17:00 02/01/17 16:59 Nitroglycerin (Nitrostat Tab) 0.4 mg UD PRN UT 01/02/17 17:00 02/01/17 16:59 Senna 8.6 mg 8.6 mg DAILY PO 01/03/17 09:00 02/02/17 08:59 Fluconazole/ Sodium Chloride 200 mg/Prmx 100 ml @ 100 mls/hr DAILY@1500 IV 01/03/17 15:00 01/13/17 14:59 Potassium Chloride/Sodium Chloride (Nss + 20meq KCl 1000ml) 1,000 ml @ 100 mls/hr Q10H IV 01/02/17 20:00 02/01/17 16:59 01/02/17 21:30 100 MLS/HR Levothyroxine Sodium 75 mcg DAILYBB PO 01/04/17 06:30 02/02/17 08:59 Dexamethasone/ Nystatin/ Diphenhydramine HCl/Sucrose/ Microcrystalline Cellulose/Barcode (Decadron Conc Soln/Mycostatin Susp/Benadryl Syrup/Ora-Sweet Syrup/Ora-Plus Susp. Vehicle) BID PO 01/02/17 21:00 02/01/17 20:59 Haloperidol Lactate (Haldol Inj) 1 mg Q4H PRN IM 01/02/17 22:15 02/01/17 22:14 01/03/17 14:34 1 MG Mirtazapine (Remeron Tab) 15 mg HS PO 01/03/17 21:00 02/02/17 20:59 Physical Exam Date Time Temp Pulse Resp B/P Pulse Ox O2 Delivery O2 Flow Rate FiO2 01/03/17 08:06 36.4 68 16 133/76 100 01/03/17 08:00 96 Room Air 01/03/17 00:11 36.8 87 18 111/65 96 Room Air 01/03/17 00:00 Room Air 01/02/17 20:07 Room Air 01/02/17 19:56 36.4 18 125/63 98 Room Air 01/02/17 18:13 71 16 143/76 97 Room Air 01/02/17 17:11 71 18 170/84 97 Room Air 01/02/17 15:44 60 01/02/17 15:16 61 22 148/79 97 Room Air General Appearance: + thin, + pertinent finding (chronically ill appearing) ENT: + pertinent finding (large and protruding bottom lip. tongue with white plaques and breath has a olga odor) Neck: no JVD Respiratory: no respiratory distress, no accessory muscle use, + pertinent finding (room air) Cardiovascular: no edema, + pertinent finding (unable to listen to heart sounds due to behaviors) Abdomen: + pertinent finding (unable to ausculatate abdomen or lungs due to agitation/behaviors) Musculoskeletal: pertinent finding (frail) Neurologic/Psychiatric: alert, + disoriented Laboratory Results Last 24 Hours Test 01/02/17 17:45 01/03/17 12:37 Prothrombin Time 11.3 SECONDS Prothromb Time International Ratio 1.1 White Blood Count 5.02 K/uL Red Blood Count 4.12 M/uL Hemoglobin 12.0 g/dL Hematocrit 35.4 % Mean Corpuscular Volume 85.9 fL Mean Corpuscular Hemoglobin 29.1 pg Mean Corpuscular Hemoglobin Concent 33.9 g/dl RDW Standard Deviation 42.4 fL RDW Coefficient of Variation 13.5 % Platelet Count 123 K/uL Mean Platelet Volume 12.0 fL Sodium Level 142 mmol/L Potassium Level 3.8 mmol/L Chloride Level 106 mmol/L Carbon Dioxide Level 28 mmol/L Anion Gap 8.0 mmol/L Blood Urea Nitrogen 22 mg/dl Creatinine 1.10 mg/dl Est Creatinine Clear Calc Drug Dose 32.4 ml/min Estimated GFR () 60.2 Estimated GFR (Non- 51.9 BUN/Creatinine Ratio 19.9 Random Glucose 233 mg/dl Calcium Level 8.8 mg/dl Assessment & Plan Palliative Performance Scale: 30 % Problem list: Alzheimer's/dementia Agitation Oral candidiasis Poor PO intake Goals of care (Z51.5) Palliative care plan: Discussed with patient's sister/POA Nancy Dolan and Dr. Mulligan. -Return to the [facility]. -Nancy would like to continue attempting to provide medical treatment to this patient for now. If the patient refuses, she is okay with that. -Goals of care and code status will certainly need to continue to be addressed with the sister/POA. I am concerned that Nancy's goals of patient eventually getting to an apartment with caregivers and reentering society are unrealistic and she is unaware that her sister's disease is progressing. -Of note: Nancy said that patient has not responded well to Haldol in the past because it causes hallucinations. However, that has not been witnessed or documented by our staff here. I'm not certain what medications have been tried at the [facility]. The sister could not tell me what has worked for the patient and what hasn't. Unless worsening of symptoms occurs, I'd be okay with continuing the PRN Haldol. Thank you kindly for this consult. I will follow as needed.
[2017-01-03] MEDS ORDERED: LORAZEPAM INJ 0.5 MG in SYRINGE 0.25 ML IV STA (17:27)
[2017-01-03] MEDS ORDERED: LORAZEPAM INJ 0.5 MG in SYRINGE 0.25 ML IV PRN (17:30)
[2017-01-03] MEDS: MIRTAZAPINE TAB 15 MG TAB PO SCH (20:40)
[2017-01-03] MEDS: LORATADINE 10 MG TAB PO SCH (20:40)
[2017-01-04] MEDS: NSS + 20MEQ KCL 1000ML 1,000 ML IV SCH ×3 (01:09→23:48)
[2017-01-04] MEDS: LEVOTHYROXINE 75 MCG TAB PO SCH (05:55)
[2017-01-04 07:53] VITALS: BP 138/80; PULSE 79; TEMP 36.7; O2SAT 95
[2017-01-04 08:20] VITALS: BP 128/80; PULSE 98; TEMP 36.4; O2SAT 99
[2017-01-04] MEDS: GABAPENTIN 100 MG CAP PO SCH ×3 (08:29→21:00)
[2017-01-04] MEDS: DEXAMETHASONE CONC SOLN 3.75 MG, NYSTATIN SUSP 30 ML, DiphenhydrAMINE HCL SYRUP 300 MG,... PO SCH ×10 (08:30→21:00)
[2017-01-04] MEDS: SENNA 8.6 MG TAB PO SCH (08:30)
[2017-01-04] MEDS: HEPARIN SOD 5000 UNIT/0.5 ML CARP SQ SCH ×2 (08:31→21:00)
--- NOTE | 2017-01-04 09:37 | Hospitalist Progress Note ---
Hospitalist Progress Note Date of Service Jan 03, 2017. Subjective Pt evaluation today including: conversation w/ patient, conversation w/ product consultant PO Intake: decreased patient is not agreeable to treatment plans. She does not want to be here and has been agitated, not following commands. Constitutional: + weakness Additional Comments: not reliable because of her baseline mental status Objective Vital Signs Date Time Temp Pulse Resp B/P Pulse Ox O2 Delivery O2 Flow Rate FiO2 01/04/17 08:20 36.4 98 17 128/80 99 Room Air 01/04/17 00:00 Room Air 01/03/17 20:00 Room Air 01/03/17 16:00 Room Air Physical Exam General Appearance: no apparent distress ENT: + pertinent finding (oral thrush) Neck: no adenopathy Respiratory/Chest: chest non-tender Cardiovascular: regular rate, rhythm Abdomen: normal bowel sounds Extremities: normal range of motion Laboratory Results Last 24 Hours Test 01/03/17 12:37 White Blood Count 5.02 K/uL Red Blood Count 4.12 M/uL Hemoglobin 12.0 g/dL Hematocrit 35.4 % Mean Corpuscular Volume 85.9 fL Mean Corpuscular Hemoglobin 29.1 pg Mean Corpuscular Hemoglobin Concent 33.9 g/dl RDW Standard Deviation 42.4 fL RDW Coefficient of Variation 13.5 % Platelet Count 123 K/uL Mean Platelet Volume 12.0 fL Sodium Level 142 mmol/L Potassium Level 3.8 mmol/L Chloride Level 106 mmol/L Carbon Dioxide Level 28 mmol/L Anion Gap 8.0 mmol/L Blood Urea Nitrogen 22 mg/dl Creatinine 1.10 mg/dl Est Creatinine Clear Calc Drug Dose 32.4 ml/min Estimated GFR () 60.2 Estimated GFR (Non- 51.9 BUN/Creatinine Ratio 19.9 Random Glucose 233 mg/dl Calcium Level 8.8 mg/dl Assessment and Plan (1) Advance care planning Assessment & Plan: will discuss with sister. (2) Oral candidiasis (3) Fall (4) Depression Assessment & Plan: remeron started (5) Anxiety Assessment & Plan: will use ativan (6) Goals of care, counseling/discussion Assessment & Plan: Case discussed in detail with Erna Duc WILDER for palliative care. She had detailed conversation with the patient's sister. I will reach out to her sister on 01/04. Discharge planning: [facility] facility Problem Qualifiers (1) Fall: Encounter type: initial encounter Qualified Codes: W19.XXXA - Unspecified fall, initial encounter
[2017-01-04 09:59] VITALS: O2SAT 99
--- NOTE | 2017-01-04 10:16 | Hospitalist Progress Note ---
Hospitalist Progress Note Date of Service Jan 04, 2017. Subjective Pt evaluation today including: conversation w/ patient, conversation w/ family , chart review Patient with no complaints decrease oral intake today. Medications Medications (Trade) Dose Ordered Sig/Nicci Route Start Time Stop Time Status Last Admin Dose Admin Fluconazole/ Sodium Chloride/ Prmx (Diflucan IV/ Premixed Nss) 100 ml @ 100 mls/hr DAILY@1500 IV 01/03/17 15:00 01/13/17 14:59 01/03/17 16:13 100 MLS/HR Mirtazapine 15 mg 15 mg HS PO 01/03/17 21:00 02/02/17 20:59 01/03/17 20:40 15 MG Lorazepam 0.5 mg/ Syringe 0.5 ml @ 0.5 mls/min Q8 PRN IV 01/03/17 17:30 02/02/17 17:29 01/03/17 23:21 0.5 MLS/MIN Lorazepam/Syringe (Ativan Inj/ Syringe) 0.5 ml @ 0.5 mls/min NOW STAT IV 01/03/17 17:27 01/03/17 17:28 DC 01/03/17 18:01 0.5 MLS/MIN Objective Vital Signs Date Time Temp Pulse Resp B/P Pulse Ox O2 Delivery O2 Flow Rate FiO2 01/04/17 08:20 36.4 98 17 128/80 99 Room Air 01/04/17 00:00 Room Air 01/03/17 20:00 Room Air 01/03/17 16:00 Room Air Physical Exam General Appearance: + thin Eyes: sclerae normal ENT: hearing grossly normal Neck: trachea midline Respiratory/Chest: lungs clear Cardiovascular: regular rate, rhythm Neurologic/Psychiatric: + depressed affect (drowsy 2 hours of sleep overnight) Skin: warm/dry Laboratory Results Last 24 Hours Test 01/03/17 12:37 White Blood Count 5.02 K/uL Red Blood Count 4.12 M/uL Hemoglobin 12.0 g/dL Hematocrit 35.4 % Mean Corpuscular Volume 85.9 fL Mean Corpuscular Hemoglobin 29.1 pg Mean Corpuscular Hemoglobin Concent 33.9 g/dl RDW Standard Deviation 42.4 fL RDW Coefficient of Variation 13.5 % Platelet Count 123 K/uL Mean Platelet Volume 12.0 fL Sodium Level 142 mmol/L Potassium Level 3.8 mmol/L Chloride Level 106 mmol/L Carbon Dioxide Level 28 mmol/L Anion Gap 8.0 mmol/L Blood Urea Nitrogen 22 mg/dl Creatinine 1.10 mg/dl Est Creatinine Clear Calc Drug Dose 32.4 ml/min Estimated GFR () 60.2 Estimated GFR (Non- 51.9 BUN/Creatinine Ratio 19.9 Random Glucose 233 mg/dl Calcium Level 8.8 mg/dl Assessment and Plan (1) Goals of care, counseling/discussion Assessment & Plan: Case discussed in detail with the patient's sister Nancy. Two options for the patient she can go to a home environment with private pay services, or she can return to the SNF. The first is not an option, the patient does not have the resources and Nancy has a sick. The second option is the patient can return to the snf with hospice added. The goals of care will be to add the additional services to see if the patient can improve, however with her present trajectory, she has less than six months to live. Hospice will be consulted today to speak with the patient and the sister. Time spent discussing the case with her sister, Palliative care, and case management. 90 minutes total. (2) Advance care planning Assessment & Plan: Patient does not want to be resuscitated, and she does not want a feeding tube. POLST can be completed prior to the patient returning to SNF. (3) Oral candidiasis Assessment & Plan: continue present management (4) Fall (5) Depression Assessment & Plan: remeron started (6) Anxiety ativan being used Problem Qualifiers (1) Fall: Encounter type: initial encounter Qualified Codes: W19.XXXA - Unspecified fall, initial encounter
[2017-01-04 12:17] LABS: PREALBUMIN 19.3 mg/dl (20-40)
[2017-01-04] MEDS: FLUCONAZOLE / NSS 200 MG in PREMIXED NSS 100 ML IV SCH (12:45)
[2017-01-04 15:00] VITALS: BP 159/83; PULSE 64; TEMP 36.8; O2SAT 94
[2017-01-04 16:00] VITALS: O2SAT 94
[2017-01-04 17:30] VITALS: BP 126/75
[2017-01-04] MEDS: LORATADINE 10 MG TAB PO SCH (20:56)
[2017-01-04] MEDS: MIRTAZAPINE TAB 15 MG TAB PO SCH (21:00)
[2017-01-05] MEDS: LEVOTHYROXINE 75 MCG TAB PO SCH (06:30)
[2017-01-05 06:58] VITALS: BP 116/56; PULSE 93; TEMP 36.3; O2SAT 90
[2017-01-05] MEDS: NSS + 20MEQ KCL 1000ML 1,000 ML IV SCH (08:54)
[2017-01-05] MEDS: DEXAMETHASONE CONC SOLN 3.75 MG, NYSTATIN SUSP 30 ML, DiphenhydrAMINE HCL SYRUP 300 MG,... PO SCH ×5 (09:00)
[2017-01-05] MEDS: SENNA 8.6 MG TAB PO SCH (09:00)
[2017-01-05] MEDS: GABAPENTIN 100 MG CAP PO SCH (09:00)
[2017-01-05] MEDS: HEPARIN SOD 5000 UNIT/0.5 ML CARP SQ SCH (09:00)
[2017-01-05 09:14] LABS: HEMATOCRIT 33.1 % (37-47); MEAN CELL VOLUME 87.3 fL (80-100); MEAN CORPUSCULAR HEMOGLOBIN 29.3 pg (25-34); MEAN CORPUSCULAR HGB CONC 33.5 g/dl (32-36); MEAN PLATELET VOLUME 12.4 fL (7.4-10.4); PLATELET COUNT 117 K/uL (130-400); RED BLOOD COUNT 3.79 M/uL (4.2-5.4); WHITE BLOOD COUNT 9.07 K/uL (4.8-10.8)
--- NOTE | 2017-01-05 12:29 | Discharge Instructions ---
Discharge Instructions Date of Service Jan 05, 2017. Admission Reason for Admission: Oral Candidiasis Discharge Discharge Diagnosis / Problem: Dehydration/dementia end stage Discharge Goals Goal(s): Improve function Activity Recommendations Activity Limitations: per Instructions/Follow-up section . Instructions / Follow-Up Instructions / Follow-Up [facility] Current Hospital Diet Patient's current hospital diet: AHA Diet (Heart Healthy) Discharge Diet Recommended Diet: Regular Diet Diet Texture: Mechanical Soft (ground) Pending Studies Studies pending at discharge: no Medical Emergencies . Who to Call and When: Medical Emergencies: If at any time you feel your situation is an emergency, please call 911 immediately. . Non-Emergent Contact Non-Emergency issues call your: Primary Care Provider . Past History Medical & Surgical History: (1) Dementia (2) Oral candidiasis . "Provider Documentation" section prepared by Nikos Mulligan. VTE Core Measure Inpt VTE Proph given/why not?: Unfractionated heparin SQ
[2017-01-05] MEDS ORDERED: DFLUDL100 PO (12:31)
[2017-01-05 13:39] VITALS: BP 116/56; PULSE 93; TEMP 36.3; O2SAT 90
[2017-01-06] MEDS ORDERED: FLUCONAZOLE SUSP 100 MG/10 ML UDP PO SCH (09:00)
--- NOTE | 2017-01-16 13:38 | DISCHARGE SUMMARY ---
Please see dictated H\T\P for full details. The patient is a 66-year-old who came in from [facility] complaining of decreased appetite. The patient has a history of dementia and had fallen on the morning of admission. CAT scan of the head, chest x-ray and pelvic x-ray were performed in the Emergency Room and all discovered to be unremarkable. History of anxiety, depression, Alzheimer's disease, epilepsy with seizures, chronic kidney disease, hypertension, hyperlipidemia and hypothyroidism. The patient's white count was normal on admission, creatinine was 1.3. The patient was admitted, discovering to have decreased appetite and oral candidiasis. She was started on IV fluconazole, with Magic Mouthwash, was continued Synthroid and code status was full. During the hospital stay, it became clear that the patient's dementia was contributing significantly to her presentation and had been worsening. In the hospital, the patient had been refusing all medical treatment including personal care, medications, lab draws and pulled IVs out of her arms multiple times. The patient expressed she simply wanted to and was unhappy being confined in the hospital. A palliative care consultation was obtained and the palliative care, Felipe Xavier, nurse practitioner reviewed the case in detail with the patient's sister Sue Law. Sue Law originally had expressed desire that the patient be able to return to society living independently. Unfortunately, for the past year the patient had been institutionalized and that seemed to be unlikely result of continued therapy. I discussed the patient's care with the patient's sister Sue Law and the patient had expressed desire to leave the facility to her sister. The patient's sister is very much aware that this is an unlikely outcome. The patient had had a dog prior to going into the facility and her dog had to be given away. I discussed the addition of hospice services to the patient's care as an additional layer of care based upon the advanced nature of her dementia and declining clinical state. The patient has less than 6 months to live in my clinical opinion based upon her advancing dementia. Hospice was consulted and they have agreed to place the patient on hospice based upon her advanced dementia. Deemed stable for discharge back to the facility on 01/05/2017 with [facility] hospice. Time spent reviewing the chart, discussing with the patient's family on the day of discharge is 35 minutes. BAYLEE
[2017-05-11] MEDS ORDERED: CLR10 PO (11:14)
[2017-05-11] MEDS ORDERED: GLIM2TAB2 PO (11:14)
[2017-05-11] MEDS ORDERED: INSDGI SC (11:14)
[2017-05-11] MEDS ORDERED: LEVO-17 PO (11:14)
[2017-05-13] MEDS ORDERED: INSDGIPEN SC (08:52)
[2017-05-13] MEDS ORDERED: NVLGIPEN SC (08:52)
[2017-05-13] MEDS ORDERED: LORA-741 PO (08:52)
[2017-05-13] MEDS ORDERED: OLAN-111 PO (08:52)
== END 2017-01-05 14:23 | DRG 159 ==
LOC: ENRESERVTM → ENRESERVDT → EDBD 12:03 → C.EDA 12:04 → C.MS2W 16:59
PROVIDERS: ADMIT Hospitalist; ATTEND Hospitalist
DX: B37.0 Candidal stomatitis (principal); E03.9 Hypothyroidism, unspecified; G30.9 Alzheimer's disease, unspecified; G40.909 Epilepsy, unspecified, not intractable, without status epilepticus; E78.5 Hyperlipidemia, unspecified; N18.9 Chronic kidney disease, unspecified; F32.9 Major depressive disorder, single episode, unspecified; I12.9 Hypertensive chronic kidney disease with stage 1 through stage 4 chronic kidney disease, or unspecified chronic kidney disease; F79 Unspecified intellectual disabilities; M19.90 Unspecified osteoarthritis, unspecified site; F41.9 Anxiety disorder, unspecified; W19.XXXA Unspecified fall, initial encounter; Y92.129 Unspecified place in nursing home as the place of occurrence of the external cause; R45.1 Restlessness and agitation; R63.8 Other symptoms and signs concerning food and fluid intake; M79.2 Neuralgia and neuritis, unspecified; R13.10 Dysphagia, unspecified; R22.0 Localized swelling, mass and lump, head; E86.0 Dehydration; Z79.899 Other long term (current) drug therapy

== ENCOUNTER → 2017-01-27 | Outpatient (CLI) | payer OTHER ==
[~2017-01-27] MED LIST changes: +BISA10SU38 PR; +DFLUDL100 PO; +ERYOPO OPL; -FLUC200T4 PO; +GLIM2TAB2 PO; +HLDI IM; +INSDGI SC; +INSDGIPEN SC; +LEVO-17 PO; +NTRGSL/4 UT; +NTRS PO; +NVLGIPEN SC; +OLAN-111 PO; -RSPI25 IM; +SODI1ENE RE; +SUPPLEMENT SHAKE PO
[2017-01-27 10:04] LABS: URINE APPEARANCE CLEAR (CLEAR); URINE BILIRUBIN NEG (NEG); URINE COLOR YELLOW; URINE NITRITE NEG (NEG); URINE SPECIFIC GRAVITY 1.029 (1.000-1.030); UROBILINOGEN NEG (NEG); ZZUR CULT IF INDIC CLEAN CATCH NO
[2017-01-27 10:24] LABS: MANUAL MICROSCOPIC REQUIRED? NO; REVIEW REQ? NO
== END ==
LOC: C.LABUPHEI 09:01
PROVIDERS: ATTEND Family Medicine
DX: R45.1 Restlessness and agitation (principal)

== ENCOUNTER 2017-04-24 03:40 | Emergency (ER) | payer OTHER ==
[~2017-04-24] VITALS: Ht 165.1 cm; Wt 54.1 kg
[~2017-04-24 03:40] MED LIST changes: -ERYOPO OPL; -GLIM2TAB2 PO; -INSDGI SC; -INSDGIPEN SC; -LEVO-17 PO; -LORA-741 PO; -NTRS PO; -NVLGIPEN SC; -OLAN-111 PO
[2017-04-24 03:41] VITALS: TEMP 37; Ht 165.1 cm; Wt 54.1 kg
--- NOTE | 2017-04-24 03:48 | EMERGENCY ROOM VISIT NOTE ---
ED Visit Note First contact with patient: 03:39 I have seen and examined this patient with Maisha Vinson and generally agree with the treatment plan as discussed. Problem List Medical Problems: (1) Anxiety Status: Chronic (2) Depression Status: Chronic Current/Historical Medications Scheduled Bisacodyl (Dulcolax), 1 SUPP WV PRN Fluconazole (Fluconazole), 100 MG PO QAM Gabapentin (Neurontin), 1 CAP PO TID Levothyroxine Sodium (Synthroid), 1 TAB PO DAILY Loratadine (Claritin), 10 MG PO HS Nitroglycerin (Nitrostat), 0.4 MG UT PRN Senna (Senokot), 1 TAB PO DAILY Sodium Phosphates (Fleet Enema Six Pack), 1 DOSE RE UD [supplement shake], 1 DOSE PO TID Scheduled PRN Acetaminophen (Tylenol), 650 MG PO Q6 PRN for Pain or Fever Haloperidol Lactate (Haloperidol Lactate), 1 MG IM Q4 PRN for Agitation Magnesium Hydroxide (Milk Of Magnesia), 30 ML PO Q24H PRN for Constipation Allergies Coded Allergies: Penicillins (Unverified Allergy, Unknown, UNKNOWN - PER OFFICE VISIT NOTE , 01/02/17) Aspirin (Unverified Adverse Reaction, Unknown, N/V PER OFFICE VISIT NOTE, 01/02/17) Phenytoin (Unverified Adverse Reaction, Unknown, N/V PER OFFICE VISIT NOTE , 01/02/17) Tramadol (Unverified Adverse Reaction, Unknown, DROWSINESS PER OFFICE VISIT NOTE, 01/02/17) Vital Signs Date Time Temp Pulse Resp B/P (MAP) Pulse Ox O2 Delivery O2 Flow Rate FiO2 04/24/17 03:41 37.0 84 16 141/85 95 Room Air Departure Information Referrals Pedro Pablo Grimes (PCP) Patient Instructions My [facility]
[2017-04-24] MEDS ORDERED: OLAN-111 PO (04:20)
[2017-04-24] MEDS ORDERED: NTRS PO (04:22)
[2017-04-24] MEDS ORDERED: LORA-741 PO (04:26)
[2017-04-24] MEDS ORDERED: CEFTRIAXONE SOD INJ 1 GM ADDVIAL ONE (05:07)
[2017-04-24] MEDS ORDERED: ERYOPO OPL (05:15)
[2017-04-24] MEDS ORDERED: ERYTHROMYCIN OP OINT 5 MG/GM 3.5 GM TUBE OP ONE (05:15)
--- NOTE | 2017-04-24 05:16 | EMERGENCY ROOM VISIT NOTE ---
History First contact with patient: 03:39 Chief Complaint: FALL Stated Complaint: GROUND LEVEL FALL/LEFT EYE LACERATION History of Present Illness The patient is a 66 year old female who presents to the Emergency Room with complaints of Past Medical/Surgical History Medical Problems: (1) Advance care planning (2) Anxiety (3) Arm fracture, left (4) Arthritis (5) Dementia (6) Depression (7) Goals of care, counseling/discussion Family History No pertinent family history Social History Smoking Status: Former Smoker Marital Status: Housing Status: senior living Occupation Status: retired Current/Historical Medications Scheduled Bisacodyl (Dulcolax), 1 SUPP VA PRN Enteral Nutrition Formula (Nutritional Supplement), 2 TABS PO TID Erythromycin Opth (Erythromycin Opth), 1 APPLN OPL QID Gabapentin (Neurontin), 1 CAP PO TID Levothyroxine Sodium (Synthroid), 1 TAB PO DAILY Nitroglycerin (Nitrostat), 0.4 MG UT PRN Senna (Senokot), 1 TAB PO DAILY Sodium Phosphates (Fleet Enema Six Pack), 1 DOSE RE UD [supplement shake], 1 DOSE PO TID Scheduled PRN Acetaminophen (Tylenol), 650 MG PO Q6 PRN for Pain or Fever Lorazepam (Ativan), 0.5 MG PO QID PRN for agitation Olanzapine (Zyprexa), 2.5 MG PO BID PRN for agitation Allergies Coded Allergies: Penicillins (Unverified Allergy, Unknown, UNKNOWN - PER OFFICE VISIT NOTE , 04/24/17) Aspirin (Unverified Adverse Reaction, Unknown, N/V PER OFFICE VISIT NOTE, 04/24/17) Phenytoin (Unverified Adverse Reaction, Unknown, N/V PER OFFICE VISIT NOTE , 04/24/17) Tramadol (Unverified Adverse Reaction, Unknown, DROWSINESS PER OFFICE VISIT NOTE, 04/24/17) Physical Exam Vital Signs Date Time Temp Pulse Resp B/P (MAP) Pulse Ox O2 Delivery O2 Flow Rate FiO2 04/24/17 05:17 83 16 145/83 97 Room Air 04/24/17 03:41 37.0 84 16 141/85 95 Room Air Medical Decision & Procedures Medications Administered Medications (Trade) Dose Ordered Sig/Nicci Route Start Time Stop Time Status Last Admin Dose Admin Erythromycin (Erythromycin Oph Oint) 1 appln NOW ONCE OP 04/24/17 05:15 04/24/17 05:16 DC 04/24/17 05:22 1 APPLN Departure Information Dispostion Home / Self-Care Condition GOOD Prescriptions Erythromycin Opth (ERYTHROMYCIN OPTH) 12 Appln/3.5 Gm Oint 1 APPLN OPL QID for 5 Days, #1 TUBE Prov: Maisha Sinha ., HARESH 04/24/17 Referrals Cory Christensen M.D. (PCP) Patient Instructions [facility]
[2017-04-24 05:17] VITALS: BP 145/83; PULSE 83; O2SAT 97
--- NOTE | 2017-04-24 06:02 | EMERGENCY ROOM VISIT NOTE ---
History First contact with patient: 03:39 Chief Complaint: FALL Stated Complaint: GROUND LEVEL FALL/LEFT EYE LACERATION History of Present Illness The patient is a 66 year old female who presents to the Emergency Room for evaluation of a left sided facial injury since suffering a fall just prior to arrival. Per nursing notes, [facility] staff reports that the patient woke up in the middle of the night and vomited. When she got up to tell staff that she vomited, she tripped and fell, hitting the left side of her face and eye on the ground, suffering abrasions and a laceration to her left cheek. The patient is a high fall risk, and usually wears a helmet, however, she was not wearing a helmet at the time of the fall. Staff denies patient losing coconsciousness and they do not report other injuries secondary to the incident. Patient is a poor historian secondary to MR. Occasionally cooperates to questioning, but does not give other complaints at this time. Review of Systems A complete 10 point review of systems was reviewed with the patient with pertinent positives and negatives as per history of present illness. All else were negative. Past Medical/Surgical History Medical Problems: (1) Advance care planning (2) Anxiety (3) Arm fracture, left (4) Arthritis (5) Dementia (6) Depression (7) Goals of care, counseling/discussion Family History No pertinent family history Social History Smoking Status: Former Smoker Marital Status: Housing Status: shelter Occupation Status: retired Current/Historical Medications Scheduled Bisacodyl (Dulcolax), 1 SUPP AL PRN Enteral Nutrition Formula (Nutritional Supplement), 2 TABS PO TID Erythromycin Opth (Erythromycin Opth), 1 APPLN OPL QID Gabapentin (Neurontin), 1 CAP PO TID Levothyroxine Sodium (Synthroid), 1 TAB PO DAILY Nitroglycerin (Nitrostat), 0.4 MG UT PRN Senna (Senokot), 1 TAB PO DAILY Sodium Phosphates (Fleet Enema Six Pack), 1 DOSE RE UD [supplement shake], 1 DOSE PO TID Scheduled PRN Acetaminophen (Tylenol), 650 MG PO Q6 PRN for Pain or Fever Lorazepam (Ativan), 0.5 MG PO QID PRN for agitation Olanzapine (Zyprexa), 2.5 MG PO BID PRN for agitation Allergies Coded Allergies: Penicillins (Unverified Allergy, Unknown, UNKNOWN - PER OFFICE VISIT NOTE , 04/24/17) Aspirin (Unverified Adverse Reaction, Unknown, N/V PER OFFICE VISIT NOTE, 04/24/17) Phenytoin (Unverified Adverse Reaction, Unknown, N/V PER OFFICE VISIT NOTE , 04/24/17) Tramadol (Unverified Adverse Reaction, Unknown, DROWSINESS PER OFFICE VISIT NOTE, 04/24/17) Physical Exam Vital Signs Date Time Temp Pulse Resp B/P (MAP) Pulse Ox O2 Delivery O2 Flow Rate FiO2 04/24/17 05:17 83 16 145/83 97 Room Air 04/24/17 03:41 37.0 84 16 141/85 95 Room Air Physical Exam VITALS: Vitals are noted on the nurse's note and reviewed by myself. Vital signs stable. GENERAL: This is a 66-year-old female, yelling and flailing extremities. SKIN: There is a 3 cm non-gaping laceration to the left cheek. HEAD: Patient is wearing a helmet. Normocephalic atraumatic. EARS: External auditory canals clear, tympanic membranes pearly soto without erythema or effusion bilaterally. EYES: Pupils equal round and reactive to light and accommodation. There is a left subconjunctival hemorrhage. There is a small abrasion to the left upper eyelid. MOUTH: Mucous membranes moist. No loose or chipped teeth. NECK: Supple without nuchal rigidity. Cervical spine is nontender. HEART: Regular rate and rhythm without murmurs gallops or rubs. LUNGS: Clear to auscultation bilaterally without wheezes, rales or rhonchi. MUSCULOSKELETAL: No deformities or significant tenderness. NEURO: Patient was alert and at her baseline mental status. Medical Decision & Procedures ER Provider Diagnostic Interpretation: CT FACIAL: Bilateral orbits appear unremarkable. There is laceration and soft tissue swelling below the left. No acute facial bone fractures. No acute mandible fracture. Minimal mucosal thickening within the maxillary sinuses. Partial opacification of the right mastoid air cells. Radiologist: Gustavo Quiñones MD CT HEAD: No midline shift or obstructive hydrocephalus. No acute intracranial hemorrhage , transcortical infarction or mass. Mild chronic small vessel ischemic disease. Visualized paranasal sinuses are clear. Except for a small amount of opacification of the right mastoids. No acute skull fracture. Radiologist: Gustavo Quiñones MD Medications Administered Medications (Trade) Dose Ordered Sig/Nicci Route Start Time Stop Time Status Last Admin Dose Admin Erythromycin (Erythromycin Oph Oint) 1 appln NOW ONCE OP 04/24/17 05:15 04/24/17 05:16 DC 04/24/17 05:22 1 APPLN Procedure Verbal consent was obtained to perform the procedure. The laceration was cleaned with betadine and sterile saline and there was no bleeding. The edges of the laceration were approximated and secured with 3 layers of Dermabond glue with good wound approximation. The patient tolerated the procedure well. ED Course The patient was evaluated as above. Labs were drawn and IV access was obtained. CT of the head and facial bones were performed and read by statrad as above. Patient was reevaluated and Dermabond was applied to her facial laceration. Discharge instructions were reviewed with the patient. The patient verbalized understanding of my assessment and treatment plan and was discharged home in good condition. Medical Decision Differential diagnosis includes intracranial hemorrhage, concussion, facial bone fracture, orbital floor fracture, nerve entrapment, among others. The patient is a 66-year-old female who presents today for evaluation after a fall. Examination shows a laceration to the left cheek as well as left periorbital edema. CT scan did not show any acute fracture or intracranial hemorrhage. Laceration was repaired with Dermabond. The patient does have a subconjunctival hemorrhage and a small amount of bleeding from what I suspect is an eyelid abrasion. The patient is develop mentally challenged and performing a complete eye exam is very difficult. I will place her on erythromycin ointment to prevent any infection. The patient was discharged back to [facility] in good condition. Medication reconciliation: I attest that I have personally reviewed the patient 's current medication list. Blood Pressure Screening: Patient was found to have a slightly elevated blood pressure due to circumstances. I do not believe that the patient requires hypertension monitoring. Impression Primary Impression: Fall Additional Impression: Contusion of multiple sites Departure Information Dispostion Home / Self-Care Condition GOOD Prescriptions Erythromycin Opth (ERYTHROMYCIN OPTH) 12 Appln/3.5 Gm Oint 1 APPLN OPL QID for 5 Days, #1 TUBE Prov: Maisha Sinha ., HARESH 04/24/17 Referrals Cory Christensen M.D. (PCP) Forms HOME CARE DOCUMENTATION FORM, IMPORTANT VISIT INFORMATION Patient Instructions My [facility] Additional Instructions Erythromycin ophthalmic ointment in the left eye 4 times daily for the next 5 days. For pain control, you can use the following [id number] medicines (if >12 yo): - Regular strength (325mg/tab) Tylenol (acetaminophen) 2 tabs every 4-6 hours as needed. Do not exceed 12 tablets in a 24 hour period. Avoid taking more than 4 grams (4000 mg) of Tylenol per day. This includes any other sources of acetaminophen you may take on a regular basis. - Regular strength (200 mg/tab) Advil (ibuprofen) 1-2 tabs every 4-6 hours as needed. Do not exceed a dose of 3200 mg per day. The skin glue will fall off on its own. Follow-up with the primary care provider this week. Problem Qualifiers Primary Impression: Fall Encounter type: initial encounter Qualified Codes: W19.XXXA - Unspecified fall, initial encounter
--- NOTE | 2017-04-24 07:48 | DIAGNOSTIC IMAGING REPORT ---
CT OF THE HEAD WITHOUT CONTRAST CLINICAL HISTORY: Fall. COMPARISON STUDY: Head CT January 02, 2017. TECHNIQUE: Helical axial images of the head were obtained without IV contrast. Automated exposure control was utilized for the study. FINDINGS: No acute intracranial hemorrhage, midline shift or mass effect is present. Ventricular system is normal. Basilar cisterns are patent. There are no extra-axial collections. There is minimal bilateral basal ganglia calcification. There is no calvarial fracture. There is a left infraorbital soft tissue swelling with a few locules of gas anterior to the left maxillary sinus. There is an acute nondisplaced fracture of the left orbital floor which is better depicted on the maxillofacial CT. IMPRESSION: 1. No acute intracranial findings. 2. No calvarial fracture. 3. Left infraorbital soft tissue swelling and a nondisplaced fracture of the left orbital floor which is better depicted on the maxillofacial CT. Electronically signed by: Luis Daniel Tate M.D. 04/24/2017 7:46 AM Dictated Date/Time: 04/24/2017 7:41 AM
--- NOTE | 2017-04-24 07:52 | DIAGNOSTIC IMAGING REPORT ---
MAXILLOFACIAL CT WITHOUT CONTRAST CLINICAL HISTORY: Fall, head and left eye injury COMPARISON STUDY: Head CT January 02, 2017. TECHNIQUE: A maxillofacial CT was performed without IV contrast. Coronal and sagittal reformats were viewed. FINDINGS: There is left infraorbital soft tissue swelling. A few locules of gas are noted anterior to the left maxillary sinus. There is trace gas within the inferior aspect of the left orbit. There is an acute nondisplaced fracture the left orbital floor. Globes are intact. Alignment of the temporomandibular joints is anatomic. There is mild mucosal thickening within the sinuses. A moderate amount of fluid within the right mastoid air cells is noted. IMPRESSION: 1. Acute nondisplaced left orbital floor fracture. 2. Left intraorbital contusion with a few locules of gas anterior to the left maxillary sinus and within the left orbit. Electronically signed by: Luis Daniel Tate M.D. 04/24/2017 7:51 AM Dictated Date/Time: 04/24/2017 7:47 AM
[2017-05-11] MEDS ORDERED: GLIM2TAB2 PO (11:14)
[2017-05-11] MEDS ORDERED: CLR10 PO (11:14)
[2017-05-11] MEDS ORDERED: INSDGI SC (11:14)
[2017-05-11] MEDS ORDERED: LEVO-17 PO (11:14)
[2017-05-13] MEDS ORDERED: OLAN-111 PO (08:52)
[2017-05-13] MEDS ORDERED: LORA-741 PO (08:52)
[2017-05-13] MEDS ORDERED: INSDGIPEN SC (08:52)
[2017-05-13] MEDS ORDERED: NVLGIPEN SC (08:52)
== END 2017-04-24 05:25 | disposition home or self-care (01) ==
LOC: EDBD 03:40 → C.EDA 03:41
DX: S01.412A Laceration without foreign body of left cheek and temporomandibular area, initial encounter (principal); T14.8 Other injury of unspecified body region; W01.0XXA Fall on same level from slipping, tripping and stumbling without subsequent striking against object, initial encounter; Y92.122 Bedroom in nursing home as the place of occurrence of the external cause; F41.9 Anxiety disorder, unspecified; M19.90 Unspecified osteoarthritis, unspecified site; F03.90 Unspecified dementia, unspecified severity, without behavioral disturbance, psychotic disturbance, mood disturbance, and anxiety; F32.9 Major depressive disorder, single episode, unspecified; Z87.891 Personal history of nicotine dependence; Z79.899 Other long term (current) drug therapy

== ENCOUNTER → 2017-05-06 | Outpatient (CLI) | payer OTHER ==
[~2017-05-06] MED LIST changes: -DFLUDL100 PO; +ERYOPO OPL; +GLIM2TAB2 PO; -HLDI IM; +INSDGI SC; +INSDGIPEN SC; +LEVO-17 PO; +LORA-741 PO; -MOML PO; +NTRS PO; +NVLGIPEN SC; +OLAN-111 PO
[2017-05-06 06:55] LABS: URINE APPEARANCE CLEAR (CLEAR); URINE BILIRUBIN NEG (NEG); URINE COLOR YELLOW; URINE EPITHELIAL CELL AUTO >30 /lpf (0-5); URINE NITRITE NEG (NEG); URINE SPECIFIC GRAVITY 1.035 (1.000-1.030); UROBILINOGEN NEG (NEG)
[2017-05-06 07:31] LABS: MANUAL MICROSCOPIC REQUIRED? NO; REVIEW REQ? NO
== END ==
LOC: C.LABUPHEI 09:51
PROVIDERS: ATTEND Nurse Practitioner Family
DX: R41.82 Altered mental status, unspecified (principal)

== ENCOUNTER → 2017-05-09 | Outpatient (CLI) | payer OTHER ==
[2017-05-09 10:29] LABS: ALB/GLOB RATIO 0.9 (0.9-2); ALKALINE PHOSPHATASE 108 U/L (45-117); ALT/SGPT 21 U/L (12-78); AST/SGOT 14 U/L (15-37); BLOOD UREA NITROGEN 31 mg/dl (7-18); BUN/CREATININE RATIO 20.5 (10-20); CALCIUM 9.4 mg/dl (8.5-10.1); CARBON DIOXIDE 27 mmol/L (21-32); CHLORIDE 96 mmol/L (98-107); GLUCOSE 517 mg/dl (70-99); POTASSIUM 4.5 mmol/L (3.5-5.1); SODIUM 132 mmol/L (136-145)
[2017-05-09 10:40] LABS: BETA-HYDROXYBUTYRATE 1.18 mg/dL (0.2-2.81)
[2017-05-09 11:31] LABS: BASO % 0.6 %; BASO ABS # 0.05 K/uL (0-0.2); COMPLETE YES; EOS % 4.2 %; HEMATOCRIT 35.4 % (37-47); IG% 0.7 %; LYMPH % 35.7 %; LYMPH ABS # 2.91 K/uL (1.2-3.4); MEAN CELL VOLUME 88.5 fL (80-100); MEAN CORPUSCULAR HGB CONC 31.6 g/dl (32-36); MEAN PLATELET VOLUME 12.6 fL (7.4-10.4); MONO % 5.9 %; NEUT % 52.9 %; PLATELET COUNT 144 K/uL (130-400); WHITE BLOOD COUNT 8.15 K/uL (4.8-10.8)
[2017-05-09 12:09] LABS: ESTIMATED AVERAGE GLUCOSE 398 mg/dl; HA1C FLAG Normal (Normal)
--- NOTE | 2017-05-11 17:44 | CODING QUERY NO DIAGNOSIS ---
: 1950 TREATMENT RENDERED WITHOUT A DIAGNOSIS To promote full compliance with coding requirements relating to patient care, physician participation is requested in all cases of prescription benefit specialist uncertainty. Please assist us with providing a diagnosis/symptom for the test(s) below: A diagnosis/symptom was not documented on your Order. A valid diagnosis/symptom is required to bill all insurances. Please remember that we are unable to code a diagnosis of rule out, probable, possible, questionable, or suspected. Tests that require a diagnosis: DOS: 05/09/17 * HEMOGLOBIN A1C DIAGNOSIS: * CBC W/AUTO DIFFERENCE DIAGNOSIS: * BETA HYDROXYBUTYRATE DIAGNOSIS: Provider Signature: Date: Thank you Vale [facility] Information Management Once completed, please kindly fax back to [phone] For questions please call [phone]
== END ==
LOC: C.LABUPHEI 08:45
PROVIDERS: ATTEND Family Medicine
DX: E11.9 Type 2 diabetes mellitus without complications (principal)

== ENCOUNTER 2017-05-11 10:33 | Inpatient (IN) | payer OTHER ==
[~2017-05-11] VITALS: Ht 160 cm; Wt 52.3 kg
[~2017-05-11 10:33] MED LIST changes: -CLR10 PO; -GLIM2TAB2 PO; -INSDGI SC; -INSDGIPEN SC; -LEVO-17 PO; -NVLGIPEN SC
[2017-05-11] MEDS ORDERED: GLIM2TAB2 PO ×2 (11:14)
[2017-05-11] MEDS ORDERED: LEVO-17 PO ×2 (11:14)
[2017-05-11] MEDS ORDERED: INSDGI SC ×2 (11:14)
[2017-05-11] MEDS ORDERED: CLR10 PO ×2 (11:14)
[2017-05-11] MEDS ORDERED: SODIUM CHLORIDE 0.9% 1000ML 1,000 ML IV STA (12:05)
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
[2017-05-11 12:28] LABS: BASO % 0.4 %; BASO ABS # 0.04 K/uL (0-0.2); COMPLETE YES; EOS % 2.3 %; HEMATOCRIT 36.6 % (37-47); IG% 0.4 %; LYMPH % 31.7 %; LYMPH ABS # 3.15 K/uL (1.2-3.4); MEAN CELL VOLUME 87.8 fL (80-100); MEAN CORPUSCULAR HEMOGLOBIN 30.2 pg (25-34); MEAN CORPUSCULAR HGB CONC 34.4 g/dl (32-36); MEAN PLATELET VOLUME 11.8 fL (7.4-10.4); MONO % 5.1 %; NEUT % 60.1 %; PLATELET COUNT 151 K/uL (130-400); RED BLOOD COUNT 4.17 M/uL (4.2-5.4); WHITE BLOOD COUNT 9.93 K/uL (4.8-10.8)
--- NOTE | 2017-05-11 12:46 | DIAGNOSTIC IMAGING REPORT ---
CHEST ONE VIEW PORTABLE CLINICAL HISTORY: sob dyspnea COMPARISON STUDY: 01/02/2017 FINDINGS: The bones soft tissues and hemidiaphragms are normal. The cardiomediastinal silhouette is normal. The lungs are clear. The pulmonary vasculature is normal. IMPRESSION: Negative chest. The above report was generated using voice recognition software. It may contain grammatical, syntax or spelling errors. Electronically signed by: Kraig Whaley M.D. 05/11/2017 12:44 PM Dictated Date/Time: 05/11/2017 12:44 PM
[2017-05-11 12:54] LABS: BUN/CREATININE RATIO 20.7 (10-20); CALCIUM 10.4 mg/dl (8.5-10.1); CREATININE 1.7 mg/dl (0.60-1.20); MAGNESIUM 2.3 mg/dl (1.8-2.4); PHOSPHORUS 3.7 mg/dl (2.5-4.9); POTASSIUM 4.7 mmol/L (3.5-5.1)
[2017-05-11 13:05] LABS: BETA-HYDROXYBUTYRATE 1.6 mg/dL (0.2-2.81)
[2017-05-11] MEDS ORDERED: INSULIN ASPART 100 UNITS/ML 3 ML PEN SC ONE (13:45)
[2017-05-11] MEDS ORDERED: NovoLOG PER UNIT CHARGE SC STA (13:55)
[2017-05-11] MEDS ORDERED: LORAZEPAM 0.5 MG TAB SL STA (15:41)
[2017-05-11] MEDS: SODIUM CHLORIDE 0.9% 1000ML 1,000 ML IV SCH ×2 (15:55→17:39)
[2017-05-11] MEDS ORDERED: ALUMINUM/MAGNESIUM/SIMETH (MAALOX MAX) 30 ML UDC PO PRN (16:00)
[2017-05-11] MEDS ORDERED: DEXTROSE 50% 50 ML SYR IV PRN (16:00)
[2017-05-11] MEDS ORDERED: GLUCOSE 40% GEL 15 GM TUBE PO PRN (16:00)
[2017-05-11] MEDS ORDERED: GLUCAGON FOR INJ 1 MG VIAL SQ PRN (16:00)
[2017-05-11] MEDS ORDERED: MAGNESIUM HYDROXIDE SUSP 30 ML UDC PO PRN (16:00)
[2017-05-11] MEDS ORDERED: ACETAMINOPHEN 325 MG TAB PO PRN (16:00)
[2017-05-11] MEDS ORDERED: ONDANSETRON INJ 2 MG/ML 2 ML VIAL IV PRN (16:00)
[2017-05-11] MEDS ORDERED: GLUCOSE 10 TABS/TUBE PO PRN (16:00)
[2017-05-11] MEDS ORDERED: POLYETHYLENE (MIRALAX) 17 GM PACK PO PRN (16:00)
[2017-05-11] MEDS ORDERED: SOD PHOSPHATE/SOD BIPHOSPHATE ENEMA 132 ML BTL PR PRN (16:15)
[2017-05-11] MEDS ORDERED: BISACODYL 10 MG SUPP PR PRN (16:15)
[2017-05-11] MEDS ORDERED: NITROGLYCERIN 0.4 MG SL PER TAB CHARGE UT SCH (16:15)
[2017-05-11] MEDS ORDERED: LORAZEPAM 2 MG/ML 1 ML VIAL IV STA (16:16)
[2017-05-11] MEDS ORDERED: PHARMACY GLYCEMIC MGMT CONSULT SCH (16:24)
--- NOTE | 2017-05-11 16:36 | History and Physical ---
History & Physical Date & Time of Service: May 11, 2017 at 16:10 Chief Complaint: [place] Sugar / [facility] Primary Care Physician: Pedro Pablo Grimes History of Present Illness Source: patient, hospital records, jail ([facility] records) This is a 66 y/o female with a history of DM II, anxiety, depression, schizophrenia, Alzheimer's disease, HTN, HLD, CKD stage III, epilepsy, hypothyroidism and chronic constipation who presented to the ED on 05/11 from [facility] with hyperglycemia. Unable to obtain history from patient due to dementia and mental status. [facility] records show that the patient was just recently diagnosed with uncontrolled DM II. A HgbA1c was checked on 05/09 which was 15.5. The patient was started on 2 mg glimepiride and 10 units of Lantus a day at that time. The patient was also started on Levaquin for presumed urinary tract infection on 05/10. The patient had a blood sugar of 567 at [facility] and was then sent to the ED for further evaluation. In the ED the patient had a blood sugar of 559. The patient received 8 units of NovoLog which brought the blood sugar down to 448. The patient also received 1 L of a NSS bolus. The patient has been physically and verbally combative, and the ER staff has been unable to obtain a urinalysis. The patient was given Ativan 0.5 mg sublingually due to agitation. Past Medical/Surgical History Medical Problems: (1) Aggression Status: Chronic (2) Anxiety Status: Chronic (3) Delusional disorder Status: Chronic (4) Dementia Status: Chronic (5) Depression Status: Chronic (6) Diabetes Status: Chronic (7) Fall Status: Chronic (8) Fall Status: Resolved (9) Inability to swallow Status: Chronic (10) Oral candidiasis Status: Chronic (11) Scalp laceration Status: Resolved (12) Swelling of left hand Status: Resolved (13) Tongue swelling Status: Resolved HTN HLD Schizophrenia CKD stage III Epilepsy Hypothyroidism Family History No pertinent family history Unable to obtain family history from the patient due to mental status. Social History Unable to obtain history from patient due to mental status. Smoking Status: Unknown if Ever Smoked Marital Status: Occupational Status: retired Allergies Coded Allergies: Penicillins (Unverified Allergy, Unknown, UNKNOWN - PER OFFICE VISIT NOTE , 04/24/17) Aspirin (Unverified Adverse Reaction, Unknown, N/V PER OFFICE VISIT NOTE, 04/24/17) Phenytoin (Unverified Adverse Reaction, Unknown, N/V PER OFFICE VISIT NOTE , 04/24/17) Tramadol (Unverified Adverse Reaction, Unknown, DROWSINESS PER OFFICE VISIT NOTE, 04/24/17) Home Medications Scheduled Bisacodyl (Dulcolax), 1 SUPP [place] PRN Gabapentin (Neurontin), 1 CAP PO TID Glimepiride (Glimepiride), 2 MG PO DAILY Insulin Glargine (Lantus), 10 UNITS SC DAILY Levofloxacin (Levaquin), 250 MG PO DAILY Levothyroxine Sodium (Synthroid), 1 TAB PO DAILY Loratadine (Claritin), 10 MG PO HS Lorazepam (Ativan), 0.5 MG PO QID Nitroglycerin (Nitrostat), 0.4 MG UT PRN Olanzapine (Zyprexa), 2.5 MG PO BID Senna (Senokot), 15 MG PO DAILY Sodium Phosphates (Fleet Enema Six Pack), 1 DOSE RE UD Scheduled PRN Acetaminophen (Tylenol), 650 MG PO Q6 PRN for Pain or Fever Review of Systems Unable to obtain ROS from patient due to mental status. Physical Exam Vital Signs Date Time Temp Pulse Resp B/P (MAP) Pulse Ox O2 Delivery O2 Flow Rate FiO2 05/11/17 14:39 88 20 141/77 97 Room Air 05/11/17 12:30 80 17 157/92 Room Air 05/11/17 10:39 36.7 74 16 137/68 95 Room Air General appearance: +Agitation. Well-developed, well-nourished, no apparent distress Head: +Helmet in place. Normocephalic, atraumatic Eyes: +Exam limited as pt uncooperative and combative. Normal inspection ENT: +Exam limited as pt uncooperative and combative. Normal ENT inspection Neck: Supple, no JVD, trachea midline Respiratory/Chest: Lungs clear to auscultation, normal breath sounds, no respiratory distress Cardiovascular: +Systolic murmur. Regular rate & rhythm, no gallop Abdomen/GI: Normal bowel sounds, non-tender, soft Extremities/Musculoskeletal: Normal inspection, no calf tenderness, no pedal edema Neurological/Psych: +Unable to assess orientation as pt uncooperative. Refuses to respond to my questions. Attempts to bite and hit when touched. Alert Skin: Normal color, warm/dry, no rash Diagnostics Laboratory Results Results Past 24 Hours Test 05/11/17 10:48 05/11/17 12:20 05/11/17 13:31 Range/Units Bedside Glucose 559 448 70-90 mg/dl White Blood Count 9.93 4.8-10.8 K/uL Red Blood Count 4.17 4.2-5.4 M/uL Hemoglobin 12.6 12.0-16.0 g/dL Hematocrit 36.6 37-47 % Mean Corpuscular Volume 87.8 80-100 fL Mean Corpuscular Hemoglobin 30.2 25-34 pg Mean Corpuscular Hemoglobin Concent 34.4 32-36 g/dl Platelet Count 151 130-400 K/uL Mean Platelet Volume 11.8 7.4-10.4 fL Neutrophils (%) (Auto) 60.1 % Lymphocytes (%) (Auto) 31.7 % Monocytes (%) (Auto) 5.1 % Eosinophils (%) (Auto) 2.3 % Basophils (%) (Auto) 0.4 % Neutrophils # (Auto) 5.96 1.4-6.5 K/uL Lymphocytes # (Auto) 3.15 1.2-3.4 K/uL Monocytes # (Auto) 0.51 0.11-0.59 K/uL Eosinophils # (Auto) 0.23 0-0.5 K/uL Basophils # (Auto) 0.04 0-0.2 K/uL RDW Standard Deviation 43.6 36.4-46.3 fL RDW Coefficient of Variation 13.6 11.5-14.5 % Immature Granulocyte % (Auto) 0.4 % Immature Granulocyte # (Auto) 0.04 0.00-0.02 K/uL Sodium Level 132 136-145 mmol/L Potassium Level 4.7 3.5-5.1 mmol/L Chloride Level 97 98-107 mmol/L Carbon Dioxide Level 28 21-32 mmol/L Anion Gap 7.0 3-11 mmol/L Blood Urea Nitrogen 35 7-18 mg/dl Creatinine 1.70 0.60-1.20 mg/dl Est Creatinine Clear Calc Drug Dose 23.1 ml/min Estimated GFR () 35.5 Estimated GFR (Non- 30.7 BUN/Creatinine Ratio 20.7 10-20 Random Glucose 529 70-99 mg/dl Calcium Level 10.4 8.5-10.1 mg/dl Phosphorus Level 3.7 2.5-4.9 mg/dl Magnesium Level 2.3 1.8-2.4 mg/dl Beta-Hydroxybutyric Acid 1.60 0.2-2.81 mg/dL Diagnostic Radiology Reviewed the following studies and agree with interpretation as follows: Patient Name: KANDI CUNNINGHAM Unit Number: [id number] Dictated: 05/11/171243 Transcribed: 05/11/171243 MS Printed Date/Time: [~ rep prt dt]/[~ rep prt tm] [~ rep ct labl] - [~ rep ct ivnm] [facility] [place] [place] [address] Dictated: 05/11/171243 Transcribed: 05/11/17 1244 MS Printed Date/Time: [~ rep prt dt]/[~ rep prt tm] [~ rep ct labl] - [~ rep ct ivnm] Patient: KANDI CUNNINGHAM Address1[facility] [address] [place] Rec: [id number] Address2: [facility] Acct ID: [id number] [facility] Zip: [place] [address] Date: 1950 Sex: F Room/Bed: Ref Phy: [facility] [employer] SC: [facility] Att Phy: Report #: [id number] Hannah Phy: [facility] [employer] Test: [id number] Admit Phy: [employer] Director: LESLI Interpreting Phy: Kraig Whaley M.D. Diagnosis: HI SUGAR / [facility] Ordering Phy: Abel Schrader M.D. Service Date: 05/11/17 Admit Date: 05/11/17 MNE: [id number] CONF: DICTATED BY: Kraig Whaley M.D.]] CC: Abel Schrader M.D. [facility] [employer] Endcc: [~ rep ct add3]] CHEST ONE VIEW PORTABLE CLINICAL HISTORY: sob dyspnea COMPARISON STUDY: 01/02/2017 FINDINGS: The bones soft tissues and hemidiaphragms are normal. The cardiomediastinal silhouette is normal. The lungs are clear. The pulmonary vasculature is normal. IMPRESSION: Negative chest. The above report was generated using voice recognition software. It may contain grammatical, syntax or spelling errors. Electronically signed by: Kraig Whaley M.D. 05/11/2017 12:44 PM Dictated Date/Time: 05/11/2017 12:44 PM The status of this report is Signed. Draft = Not yet reviewed or approved by Radiologist. Signed = Reviewed and approved by Radiologist. <AttendingPhy></AttendingPhy> <FamilyPhy>[facility] [employer]</FamilyPhy> < PrimaryPhy>[facility] [employer]</PrimaryPhy> <UnitNumber>[id number]</UnitNumber > <VisitNumber>[id number]</VisitNumber> <PatientName>KANDI CUNNINGHAM</ PatientName> <DateOfBirth>1950</DateOfBirth> <Location>C.[facility]</Location> < ServiceDate>05/11/17</ServiceDate> <MNE>ESINDI</MNE> <OrderingPhy>Abel Schrader M.D.</OrderingPhy> <OrderingPhyMNE>f rep ord dr johnson</OrderingPhyMNE> <DictatingPhyMNE>f rep dict dr johnson</DictatingPhyMNE> <CCListMNE>f rep ct elizabeth</ CCListMNE> <AdmittingPhyMNE>f pt admit dr johnson</AdmittingPhyMNE> <AttendingPhyMNE >f pt attend dr johnson</AttendingPhyMNE> <ConsultingPhyMNE>f pt consult dr johnson</ConsultingPhyMNE> <FamilyPhyMNE>f pt fam dr johnson</FamilyPhyMNE> <OtherPhyMNE>f pt other dr johnson</OtherPhyMNE> < PrimaryPhyMNE>f pt prim care dr johnson</PrimaryPhyMNE> <ReferringPhyMNE>f pt referring dr johnson</ReferringPhyMNE> Impression Assessment and Plan 66 y/o female with a history of DM II, anxiety, depression, schizophrenia, Alzheimer's disease, HTN, HLD, CKD stage III, epilepsy, hypothyroidism and chronic constipation who presented to the ED on 05/11 from [facility] with hyperglycemia. Pt afebrile, VSS. Blood sugar 559 on arrival. Sugar down to 448 after receiving 8 units of NovoLog. Chest x-ray shows no acute disease. ER staff unable to obtain urinalysis. Creatinine elevated above baseline of 1.7. Beta hydroxybutyric acid within normal limits. Hyperglycemia, h/o DM II--last hemoglobin A1c checked on 05/09/17 was 15.5. Patient started on 10 units of Lantus and 2 mg of glimepiride on 05/09 -Admit to telemetry -Hold glimepiride and home dose of Lantus -Lantus 15 units SC qd for now -Insulin sliding scale -Check BSGs q ac and qhs -Consult pharmacy for glycemic control -EKG stat, check QT interval -UA, culture if indicated when able -Empiric Levaquin 500 mg IV qd for presumed UTI for now DERRICK on CKD stage III--baseline creatinine 1.3-1.5 -Creatinine 1.7 on admission -IVF with NSS at 75 cc/hr -Continue to monitor Schizophrenia, h/o anxiety, agitation -Continue Zyprexa 2.5 mg PO BID and Ativan 0.5 mg PO QID H/o epilepsy -Continue gabapentin 100 mg PO TID -Seizure precautions -Pt has helmet from [facility] that is worn at all times Hypothyroidism -Continue Synthroid 75 mcg PO qd Chronic constipation -Continue Senna 15 mg PO qd and Miralax qd -Continue Dulcolax supp, milk of magnesia prn and fleet enema prn DVT prophylaxis -Heparin 5000 units SC q12h -SONJA wang and SCDs Code Status -Level I, FULL RESUSCITATION STATUS This chart was completed in part utilizing Tailored Speech Voice Recognition software. Attempts were made to minimize the grammatical errors, random word insertions, pronoun errors and incomplete sentences. Any formal questions or concerns about the content, text or information contained within the body of this dictation should be directly addressed to the provider for clarification. I personally interviewed and examined the patient I discussed the above plan with Miss Jessica Garcia / CRISTIAN I agree with her Hx and PE 66 y/o/f with a history of DM II,schizophrenia, Alzheimer's disease, hypothyroidism and HTN P/W elevated BS refused cooperation w staff . ROS/PMHx: unobtainable FHx/SHx/labs/meds reviewed as needed PE: average built, agitated, exam is limited LUNGs: normal exam, no wheezing/R Heart: s1/s2 normal, no G/R/M ABD: soft, ND, N tender Ext: no edema or erythema Neuro: agitated Assessment: Severe hyperglycemia agitation Alzheimer Plan: Insulin as per pharmacy ativan prn agitation until we get EKG then if no prolonged QTc then switch to geodone or haldol prn agitation UA R/O UTI check hgbA1C Level of Care Telemetry Resuscitation Status FULL RESUSCITATION VTE Prophylaxis VTE Risk Assessment Done? Y/N: Yes Risk Level: Moderate Given or contraindicated: Unfractionated heparin SQ, T.E.D. Stockings, SCD's
[2017-05-11 16:52] LABS: URINE APPEARANCE CLEAR (CLEAR); URINE BILIRUBIN NEG (NEG); URINE COLOR YELLOW; URINE NITRITE NEG (NEG); URINE PH 6.5 (4.5-7.5); UROBILINOGEN NEG (NEG); ZZUR CULT IF INDIC CLEAN CATCH NO
[2017-05-11 16:54] VITALS: BP 118/64; PULSE 73; TEMP 37.3; O2SAT 96; BMI 20.8
[2017-05-11] MEDS ORDERED: INSULIN GLARGINE SOLOSTAR 100 UNITS/ML 3 ML PEN SC ONE (17:00)
[2017-05-11 17:03] LABS: MANUAL MICROSCOPIC REQUIRED? NO; REVIEW REQ? NO
[2017-05-11] MEDS: LORAZEPAM 0.5 MG TAB PO SCH ×2 (17:22→21:26)
--- NOTE | 2017-05-11 17:35 | Pharmacy Progress Note ---
Glycemic Control Intl Consult Date of Service May 11, 2017. Scope Glycemic Pharmacist consulted by Jessica Garcia PA-C on 05/11/17 for glycemic control and to write orders per [facility] inpatient glycemic control protocol Objective Weight (Kilograms): 53.300 Accuchecks BSG (last 24hrs): Test 05/11/17 10:48 05/11/17 12:20 05/11/17 13:31 05/11/17 16:32 Bedside Glucose 559 mg/dl (70-90) 448 mg/dl (70-90) 262 mg/dl (70-90) Random Glucose 529 mg/dl (70-99) Laboratory Data (last 24hrs) Test 05/11/17 12:20 Anion Gap 7.0 mmol/L BUN/Creatinine Ratio 20.7 Blood Urea Nitrogen 35 mg/dl Creatinine 1.70 mg/dl Potassium Level 4.7 mmol/L Sodium Level 132 mmol/L White Blood Count 9.93 K/uL Red Blood Count 4.17 M/uL Hemoglobin 12.6 g/dL Hematocrit 36.6 % Mean Corpuscular Volume 87.8 fL Mean Corpuscular Hemoglobin 30.2 pg Mean Corpuscular Hemoglobin Concent 34.4 g/dl Platelet Count 151 K/uL Mean Platelet Volume 11.8 fL Neutrophils (%) (Auto) 60.1 % Lymphocytes (%) (Auto) 31.7 % Monocytes (%) (Auto) 5.1 % Eosinophils (%) (Auto) 2.3 % Basophils (%) (Auto) 0.4 % Neutrophils # (Auto) 5.96 K/uL Lymphocytes # (Auto) 3.15 K/uL Monocytes # (Auto) 0.51 K/uL Eosinophils # (Auto) 0.23 K/uL Basophils # (Auto) 0.04 K/uL Recent Pertinent Medications Outpatient Anti-diabetic Regimen: * Lantus 10 units SQ Daily - started on 05/09/17 * Glimepiride 2 mg PO Daily - started on 05/09/17 * A1c = 15.5 % 05/09/17 Risk Factors for Insulin Resistance: * Infection: UTI, IV Levaquin * Diet: Type 2 DM Assessment & Plan ASSESSMENT: * 66 year old newly diagnosed type 2 diabetic, started on lantus and glimepiride on 05/09 admitted with hyperglycemia and UTI from [facility] * Spoke with nurse, patient's BSG down to 219mg/dL since 8 units of Novolog received 2.5 hours ago * Pt on glimperide as outpatinet, Oral agents are not recommended for inpatient use d/t drug interactions, changing PO intake, and difficulty titrating for acute hyper/hypoglycemia. ADA recommends re-initiating outpatient oral agents 1- 2 days prior to discharge if/when appropriate if they were held on admission. * Will hold oral agents for admission and utilize SQ basal bolus insulin regimen which is the recommended regimen for inpatient glycemic control. * Will continue Lantus dose that was started a few days ago and start CF and CR and titrate based on BSG trends. * Additional accuchecks overnight tonight to see how patient's blood sugar is doing overnight to best adjust Lantus dosing * ADA & AACE recommend a goal blood sugar range 140-180 mg/dl for the majority of critically ill & non-critically ill patients. However, more stringent targets may be selected in individual cases. I will begin patient on this goal range since she was admitted with hyperglycemia and her A1c and recent diagnosis of Diabetes. Consider tightening goal range to 110-140mg/dl soon to facilitate healing from UTI. * Of note - patient has been somewhat combative and uncooperative with staff during admission thus far, which will need to be considered with glycemic control. PLAN FOR INPATIENT GLYCEMIC CONTROL: * Holding outpatient oral diabetes medications * Basal insulin with LANTUS 10 units SQ daily * Hold for BSG < 110mg/dL * Correctional Insulin with NOVOLOG per scale ACHS or Q6hrs while NPO * Goal Range: Low 140 mg/dL - High 180 mg/dL * Correction Factor: 30 mg/dL/unit * Nutritional / Prandial insulin per carb ratio of 1 unit per 10 grams CHO consumed * Please note that the plan above was derived based on current level of insulin resistance and hospital stress. These recommendations are appropriate for inpatient admission only. Plan of care upon discharge will need to be reassessed to avoid potential outpatient hypo/hyperglycemia. Thank you.
[2017-05-11] MEDS: INSULIN ASPART 100 UNITS/ML 3 ML PEN SC SCH ×2 (17:42→21:00)
[2017-05-11] MEDS ORDERED: NURSING VERBAL MED ORDER ONE (18:15)
[2017-05-11] MEDS: LEVOFLOXACIN / D5W 250 MG in PREMIXED IN D5W 50 ML IV SCH (18:48)
[2017-05-11] MEDS ORDERED: LORAZEPAM 2 MG/ML 1 ML VIAL IV PRN (19:00)
[2017-05-11] MEDS ORDERED: LORAZEPAM INJ 1 MG in SYRINGE 0.5 ML IV PRN (19:00)
[2017-05-11] MEDS ORDERED: LORAZEPAM 2 MG/ML 1 ML VIAL IV ONE (19:00)
[2017-05-11 21:00] VITALS: BP 127/75; PULSE 71; TEMP 36.5; O2SAT 98
[2017-05-11] MEDS: GABAPENTIN 100 MG CAP PO SCH (21:26)
[2017-05-11] MEDS: LORATADINE 10 MG TAB PO SCH (21:26)
[2017-05-11] MEDS: OLANZAPINE 2.5 MG TAB PO SCH (21:27)
[2017-05-11] MEDS: HEPARIN SOD 5000 UNIT/0.5 ML CARP SQ SCH (21:49)
[2017-05-12] VITALS (8 sets, daily range): BP systolic 114–126; BP diastolic 65–77; PULSE 75–86; TEMP 36.3–36.9; O2SAT 93–99; Ht 160 cm; Wt 52.3 kg
[2017-05-12] MEDS ORDERED: INSULIN ASPART 100 UNITS/ML 3 ML PEN SC SCH
[2017-05-12] MEDS: LEVOTHYROXINE 75 MCG TAB PO SCH (05:37)
[2017-05-12 06:44] LABS: HEMATOCRIT 34.1 % (37-47); MEAN CELL VOLUME 89.3 fL (80-100); MEAN CORPUSCULAR HEMOGLOBIN 29.1 pg (25-34); MEAN CORPUSCULAR HGB CONC 32.6 g/dl (32-36); MEAN PLATELET VOLUME 11.7 fL (7.4-10.4); PLATELET COUNT 126 K/uL (130-400); RED BLOOD COUNT 3.82 M/uL (4.2-5.4); WHITE BLOOD COUNT 7.19 K/uL (4.8-10.8)
[2017-05-12 07:27] LABS: BUN/CREATININE RATIO 20.2 (10-20); CREATININE 1.3 mg/dl (0.60-1.20); POTASSIUM 4.4 mmol/L (3.5-5.1)
[2017-05-12] MEDS: SODIUM CHLORIDE 0.9% 1000ML 1,000 ML IV SCH ×2 (07:42→17:08)
[2017-05-12] MEDS: SENNA 8.6 MG TAB PO SCH (07:44)
[2017-05-12] MEDS: POLYETHYLENE (MIRALAX) 17 GM PACK PO SCH (07:44)
[2017-05-12] MEDS: OLANZAPINE 2.5 MG TAB PO SCH ×2 (07:44→21:00)
[2017-05-12] MEDS: GABAPENTIN 100 MG CAP PO SCH ×3 (07:45→20:59)
[2017-05-12] MEDS: INSULIN ASPART 100 UNITS/ML 3 ML PEN SC SCH ×4 (07:51→20:52)
[2017-05-12] MEDS: HEPARIN SOD 5000 UNIT/0.5 ML CARP SQ SCH ×3 (07:52→21:00)
[2017-05-12] MEDS: LORAZEPAM 0.5 MG TAB PO SCH ×4 (07:58→20:52)
[2017-05-12] MEDS ORDERED: INSULIN GLARGINE SOLOSTAR 100 UNITS/ML 3 ML PEN SC SCH ×4 (09:00→21:00)
[2017-05-12] MEDS ORDERED: SENNA 8.6 MG TAB PO SCH (09:00)
--- NOTE | 2017-05-12 10:08 | Pharmacy Progress Note ---
Glycemic Control Progress Note Date of Service May 12, 2017. Scope Glycemic Pharmacist consulted for glycemic control to write orders per [facility] inpatient glycemic control protocol. Objective Accuchecks BSG (last 24hrs): Test 05/11/17 10:48 05/11/17 12:20 05/11/17 13:31 05/11/17 16:32 Bedside Glucose 559 mg/dl (70-90) 448 mg/dl (70-90) 262 mg/dl (70-90) Random Glucose 529 mg/dl (70-99) Test 05/11/17 17:15 05/11/17 20:57 05/12/17 05:50 05/12/17 06:31 Bedside Glucose 219 mg/dl (70-90) 163 mg/dl (70-90) 272 mg/dl (70-90) Random Glucose 255 mg/dl (70-99) HbA1c: 15.5% on 05/09/17 Recent Pertinent Medications The patient is currently receiving: * Basal insulin: Lantus 10 units every 24 hours * Correctional Insulin: Novolog Correction per scale ACHS Goal Range: Low 140 mg/dL - High 180 mg/dL Correction Factor: 30 mg/dL/unit * Prandial insulin: Per carb ratio of 1 unit per 10 grams CHO consumed * Oral Agents: On hold for admission Outpatient Anti-Diabetic Meds Oral Agents Basal Insulin {just started antidiabetic regimen 05/09/17} Assessment & Plan ASSESSMENT: * See progress note from 05/11/17 for more background info, in short: * Pt receiving SQ basal bolus insulin regimen for hyperglycemia secondary to baseline DM (outpatient regimen on hold) & stress/infection * BSGs ranging 163 - 272 mg/dl since starting insulin regimen * Changes needed to insulin regimen: * AM Fasting BSG = 272 mg/dl. This is above goal range for patient based on inpatient targets and co-morbidities. Therefore Basal insulin needs increased. * Post-prandial BSGs are elevated, will tighten CF/CR * Estimating total daily insulin dose to be ~ 40 units. Will continue to titrate regimen based on BSG trends. * Additional notes / comments: Hyperglycemia corrected/responded well after fluid bolus in ED. Expect that there may be some degree of HHS with this hyperglycemia. Recommend continuing fluid therapy to help rehydrate the fluid losses from glucose osmotic diuresis. If possible, recommend increasing fluid rate. Rehydration and correction of hyperosmolar state increases response to insulin therapy. PLAN FOR INPATIENT GLYCEMIC CONTROL: * Oral Agents * Continue to hold outpatient oral diabetes medications. * Basal insulin: increase dose for elevated AM fasting BSG * Lantus 18 units SQ daily * Additional dose of Lantus tonight if hyperglycemia persists despite dose increase this morning - Lantus 5 units if BSG 140-180mg/dl - Lantus 9 units if BSG 181mg/dl or above * Bolus insulin: Tighten CF/CR * NovoLog per scale ACHS or Q6hrs while NPO * Goal Range: Low 140 mg/dL - High 180 mg/dL {higher goal range for significantly elevated A1c, pt may feel hypo at otherwise normal BSGs} * Correction Factor: 20 mg/dL/unit * Nutritional / Prandial insulin per carb ratio of 1 unit per 7 grams CHO consumed * Please note that the plan above was derived based on current level of insulin resistance and hospital stress. These recommendations are appropriate for inpatient admission only. Plan of care upon discharge will need to be reassessed to avoid potential outpatient hypo/hyperglycemia. Thank you.
--- NOTE | 2017-05-12 15:43 | Progress Note ---
Subjective Date of Service: May 12, 2017. Subjective this pt is not responsive, she did just have ativan. 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 (9) Oral candidiasis Status: Chronic Review of Systems Constitutional: + problem reported (ROS is not able to be obtained to obtundation) Objective Vital Signs Date Time Temp Pulse Resp B/P (MAP) Pulse Ox O2 Delivery O2 Flow Rate FiO2 05/12/17 08:12 Room Air 05/12/17 07:20 36.9 75 17 126/77 (93) 95 Room Air 05/12/17 05:51 75 18 125/72 (89) 99 Room Air 05/12/17 04:00 Room Air 05/12/17 00:24 85 20 126/73 (90) 93 Room Air 05/12/17 00:10 96 Room Air 05/11/17 21:00 36.5 71 16 127/75 (92) 98 Room Air 05/11/17 20:00 Room Air 05/11/17 16:54 37.3 73 16 118/64 96 Room Air 05/11/17 16:44 88 18 97 Room Air 05/11/17 14:39 88 20 141/77 97 Room Air 05/11/17 12:30 80 17 157/92 Room Air 05/11/17 10:39 36.7 74 16 137/68 95 Room Air Physical Exam General Appearance: WD/WN, + moderate distress Neck: supple, no JVD Respiratory/Chest: chest non-tender, lungs clear, normal breath sounds Cardiovascular: regular rate, rhythm, no murmur Abdomen: normal bowel sounds, non tender, soft Extremities: no pedal edema, no calf tenderness Laboratory Results Last 24 Hours Test 05/11/17 10:48 05/11/17 12:20 05/11/17 13:31 05/11/17 16:32 Bedside Glucose 559 mg/dl 448 mg/dl 262 mg/dl White Blood Count 9.93 K/uL Red Blood Count 4.17 M/uL Hemoglobin 12.6 g/dL Hematocrit 36.6 % Mean Corpuscular Volume 87.8 fL Mean Corpuscular Hemoglobin 30.2 pg Mean Corpuscular Hemoglobin Concent 34.4 g/dl Platelet Count 151 K/uL Mean Platelet Volume 11.8 fL Neutrophils (%) (Auto) 60.1 % Lymphocytes (%) (Auto) 31.7 % Monocytes (%) (Auto) 5.1 % Eosinophils (%) (Auto) 2.3 % Basophils (%) (Auto) 0.4 % Neutrophils # (Auto) 5.96 K/uL Lymphocytes # (Auto) 3.15 K/uL Monocytes # (Auto) 0.51 K/uL Eosinophils # (Auto) 0.23 K/uL Basophils # (Auto) 0.04 K/uL RDW Standard Deviation 43.6 fL RDW Coefficient of Variation 13.6 % Immature Granulocyte % (Auto) 0.4 % Immature Granulocyte # (Auto) 0.04 K/uL Sodium Level 132 mmol/L Potassium Level 4.7 mmol/L Chloride Level 97 mmol/L Carbon Dioxide Level 28 mmol/L Anion Gap 7.0 mmol/L Blood Urea Nitrogen 35 mg/dl Creatinine 1.70 mg/dl Est Creatinine Clear Calc Drug Dose 23.1 ml/min Estimated GFR () 35.5 Estimated GFR (Non- 30.7 BUN/Creatinine Ratio 20.7 Random Glucose 529 mg/dl Calcium Level 10.4 mg/dl Phosphorus Level 3.7 mg/dl Magnesium Level 2.3 mg/dl Beta-Hydroxybutyric Acid 1.60 mg/dL Test 05/11/17 17:15 05/11/17 20:57 05/12/17 05:50 05/12/17 06:31 Bedside Glucose 219 mg/dl 163 mg/dl 272 mg/dl White Blood Count 7.19 K/uL Red Blood Count 3.82 M/uL Hemoglobin 11.1 g/dL Hematocrit 34.1 % Mean Corpuscular Volume 89.3 fL Mean Corpuscular Hemoglobin 29.1 pg Mean Corpuscular Hemoglobin Concent 32.6 g/dl RDW Standard Deviation 45.3 fL RDW Coefficient of Variation 13.9 % Platelet Count 126 K/uL Mean Platelet Volume 11.7 fL Sodium Level 140 mmol/L Potassium Level 4.4 mmol/L Chloride Level 106 mmol/L Carbon Dioxide Level 29 mmol/L Anion Gap 5.0 mmol/L Blood Urea Nitrogen 26 mg/dl Creatinine 1.30 mg/dl Est Creatinine Clear Calc Drug Dose 34.7 ml/min Estimated GFR () 49.2 Estimated GFR (Non- 42.4 BUN/Creatinine Ratio 20.2 Random Glucose 255 mg/dl Calcium Level 9.0 mg/dl Assessment and Plan 66 uncontrolled diabetes, history of anxiety, depression, schizophrenia, Alzheimer's disease, HTN, HLD, CKD stage III, epilepsy, hypothyroidism and chronic constipation Hyperglycemia, h/o DM II--A1c on 05/09/17 15.5. Patient started on 10 units of Lantus and 2 mg of glimepiride on 05/09 hold home meds, pharmacy for basal bolus recommendations UTI poa, levaquin DERRICK on CKD stage III- -IVF with NSS at 75 cc/hr Schizophrenia, h/o anxiety, agitation Zyprexa 2.5 mg PO BID and Ativan 0.5 mg PO QID H/o epilepsygabapentin 100 mg PO TID, helmet for head protection Hypothyroidism clinically stable Synthroid 75 mcg PO qd Chronic constipationSenna 15 mg PO qd and Miralax qd DVT prophylaxis-Heparin 5000 units SC q12h -Level I, FULL RESUSCITATION STATUS
[2017-05-12] MEDS: LEVOFLOXACIN / D5W 250 MG in PREMIXED IN D5W 50 ML IV SCH (17:08)
[2017-05-12] MEDS: LORATADINE 10 MG TAB PO SCH (21:00)
[2017-05-13] MEDS: INSULIN ASPART 100 UNITS/ML 3 ML PEN SC SCH ×6 (01:07→20:51)
[2017-05-13] MEDS: LEVOTHYROXINE 75 MCG TAB PO SCH (06:52)
[2017-05-13] MEDS: LORAZEPAM 0.5 MG TAB PO SCH ×4 (08:11→20:50)
[2017-05-13] MEDS: SENNA 8.6 MG TAB PO SCH (08:12)
[2017-05-13] MEDS: OLANZAPINE 2.5 MG TAB PO SCH ×2 (08:12→20:51)
[2017-05-13] MEDS: GABAPENTIN 100 MG CAP PO SCH ×3 (08:13→20:50)
[2017-05-13] MEDS: POLYETHYLENE (MIRALAX) 17 GM PACK PO SCH (08:13)
[2017-05-13] MEDS: SODIUM CHLORIDE 0.9% 1000ML 1,000 ML IV SCH (08:14)
[2017-05-13] MEDS: HEPARIN SOD 5000 UNIT/0.5 ML CARP SQ SCH ×3 (08:18→20:51)
[2017-05-13] MEDS: INSULIN GLARGINE SOLOSTAR 100 UNITS/ML 3 ML PEN SC SCH (08:18)
[2017-05-13 08:45] LABS: HEMATOCRIT 33.4 % (37-47); MEAN CELL VOLUME 89.1 fL (80-100); MEAN CORPUSCULAR HEMOGLOBIN 28.8 pg (25-34); MEAN CORPUSCULAR HGB CONC 32.3 g/dl (32-36); MEAN PLATELET VOLUME 11.2 fL (7.4-10.4); PLATELET COUNT 131 K/uL (130-400); RED BLOOD COUNT 3.75 M/uL (4.2-5.4)
[2017-05-13] MEDS ORDERED: LORA-741 PO ×2 (08:52)
[2017-05-13] MEDS ORDERED: NVLGIPEN SC ×2 (08:52)
[2017-05-13] MEDS ORDERED: INSDGIPEN SC ×2 (08:52)
[2017-05-13] MEDS ORDERED: OLAN-111 PO ×2 (08:52)
--- NOTE | 2017-05-13 08:55 | Pharmacy Progress Note ---
Glycemic Control Progress Note Date of Service May 13, 2017. Scope Glycemic Pharmacist consulted for glycemic control to write orders per [facility] inpatient glycemic control protocol. Objective Accuchecks BSG (last 24hrs): Test 05/12/17 11:04 05/12/17 16:45 05/12/17 19:45 05/12/17 23:53 Bedside Glucose 273 mg/dl (70-90) 111 mg/dl (70-90) 154 mg/dl (70-90) 200 mg/dl (70-90) Test 05/13/17 03:46 05/13/17 07:50 05/13/17 08:27 Bedside Glucose 167 mg/dl (70-90) 126 mg/dl (70-90) HbA1c: Item Value Date Time Hemoglobin A1c 15.5 % H 05/09/17 0500 Estimated Average Glucose 398 mg/dl 05/09/17 0500 Recent Pertinent Medications The patient is currently receiving: * Basal insulin: Lantus 18 units every 24 hours; Additional 5 units given last night for BSG >140 * Correctional Insulin: Novolog Correction per scale ACHS Goal Range: Low 140 mg/dL - High 180 mg/dL Correction Factor: 20 mg/dL/unit * Prandial insulin: Per carb ratio of 1 unit per 7 grams CHO consumed Outpatient Anti-Diabetic Meds Oral Agents Basal Insulin {just started antidiabetic regimen 05/09/17} Assessment & Plan ASSESSMENT: * See progress note from 05/11/17 for more background info, in short: * Pt receiving SQ basal bolus insulin regimen for hyperglycemia secondary to baseline DM (outpatient regimen on hold) & stress/infection * BSGs ranging 111- 273 mg/dl over the past 24 hours * Changes needed to insulin regimen: * AM Fasting BSG = 126 mg/dl. This is within goal range. Patient received a total of 23 units of basal yesterday. Will change orders to Lantus 22 units daily and continue to adjust. * Post-prandial BSGs have responded to most recent adjustment. Continue with no changes. * Estimating total daily insulin dose to be ~ 40-50 units. Will continue to titrate regimen based on BSG trends. PLAN FOR INPATIENT GLYCEMIC CONTROL: * Oral Agents * Continue to hold outpatient oral diabetes medications. * Basal insulin * Lantus 22 units SQ daily * Bolus insulin * NovoLog per scale ACHS or Q6hrs while NPO * Goal Range: Low 140 mg/dL - High 180 mg/dL {higher goal range for significantly elevated A1c, pt may feel hypo at otherwise normal BSGs} * Correction Factor: 20 mg/dL/unit * Nutritional / Prandial insulin per carb ratio of 1 unit per 7 grams CHO consumed * Please note that the plan above was derived based on current level of insulin resistance and hospital stress. These recommendations are appropriate for inpatient admission only. Plan of care upon discharge will need to be reassessed to avoid potential outpatient hypo/hyperglycemia. Thank you.
--- NOTE | 2017-05-13 08:55 | Discharge Instructions ---
Discharge Instructions Date of Service May 14, 2017. Admission Reason for Admission: Sunil, Hyperglycemia Discharge Discharge Diagnosis / Problem: uncontrolled diabetes Discharge Goals Goal(s): Diagnostic testing, Therapeutic intervention Activity Recommendations Activity Level: Assistance Required Therapies: Physical Therapy, Occupational Therapy . Additional Information Patient informed of condition: Yes Advance Directives: Yes DNR: No Level of Care: Skilled Communicable Disease: No Prognosis: Stable Yung Catheter: No Current Hospital Diet Patient's current hospital diet: Diabetes Type 2 Diet Discharge Diet Recommended Diet: Diabetes Type 2 Diet Pending Studies Studies pending at discharge: no Laboratory Results Hemoglobin A1c Test 05/09/17 05:00 Range/Units Estimated Average Glucose 398 mg/dl Hemoglobin A1c 15.5 H 4.5-5.6 % Medical Emergencies . Who to Call and When: Medical Emergencies: If at any time you feel your situation is an emergency, please call 911 immediately. . Non-Emergent Contact Non-Emergency issues call your: Primary Care Provider Call Non-Emergent contact if: temperature is above 101, your pain is unusual for you . . "Provider Documentation" section prepared by Navneet Kirkland. . Tow Operator Recommendations Tow Operator Recommendations: 66 uncontrolled diabetes, history of anxiety, depression, schizophrenia, Alzheimer's disease, HTN, HLD, CKD stage III, epilepsy, hypothyroidism and chronic constipation Hyperglycemia, h/o DM II--A1c on 05/09/17 15.5. Patient reached good control on basal bolus insulin and likely will not be a candidate for control with oral meds UTI poa, levaquin compelte course, initial ua here was normal SUNIL on CKD stage III- -resolved Schizophrenia, h/o anxiety, agitation Zyprexa 2.5 mg PO BID and Ativan 0.5 mg PO QID H/o epilepsy gabapentin 100 mg PO TID, helmet for head protection Hypothyroidism clinically stable Synthroid 75 mcg PO qd Chronic constipation Senna 15 mg PO qd and Miralax qd DVT prophylaxis-Heparin 5000 units SC q12h -Level I, FULL RESUSCITATION STATUS Core Measure Problem Core Measures: None
--- NOTE | 2017-05-13 08:58 | Discharge Summary ---
Discharge Summary Date of Service May 13, 2017. 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 GIVE 1 SUPPOSITORY PER PROTOCOL ON DAY 4 NO BOWEL MOVEMENT Gabapentin (Neurontin) 100 Mg Cap 1 CAP PO TID for 30 Days, #90 CAP 2 Refills Insulin Glargine (Lantus) 100 Unit/Ml Inj 10 UNITS SC DAILY, VIAL Levofloxacin (Levaquin) 250 Mg Tab 250 MG PO DAILY for 10 Days, TAB complete course 05/18 Levothyroxine Sodium (Synthroid) 75 Mcg Tab 1 TAB PO DAILY for 30 Days, #30 TAB 5 Refills Loratadine (Claritin) 10 Mg Tab 10 MG PO HS, TAB Lorazepam (Ativan) 0.5 Mg Tab 0.5 MG PO QID, #120 TAB (This prescription has been renewed) Nitroglycerin (Nitrostat) 0.4 Mg Tab 0.4 MG UT PRN, BTL Olanzapine (Zyprexa) 5 Mg Tab 2.5 MG PO BID, #60 TAB (This prescription has been renewed) Senna (Senokot) 8.6 Mg Tab 15 MG PO DAILY for Constipation Sodium Phosphates (Fleet Enema Six Pack) 1 Kelly Kelly 1 DOSE RE UD if dulcolax not effective insert 1 enema rectally on 6am shift at least 4 hours after supp Discontinued Medications: Glimepiride (Glimepiride) 2 Mg Tab 2 MG PO DAILY for 90 Days, #90 TAB 3 Refills Discharge Exam Review of Systems: Constitutional: No fever, No chills Respiratory: No cough, No sputum Cardiovascular: No chest pain, No PND, No edema Abdomen: No pain, No nausea, No vomiting Physical Exam: General Appearance: WD/WN, + mild distress Respiratory/Chest: chest non-tender, lungs clear, normal breath sounds Cardiovascular: regular rate, rhythm, no murmur Neurologic/Psychiatric: alert, + depressed affect, + disoriented Hospital Course 66 uncontrolled diabetes, history of anxiety, depression, schizophrenia, Alzheimer's disease, HTN, HLD, CKD stage III, epilepsy, hypothyroidism and chronic constipation Hyperglycemia, h/o DM II--A1c on 05/09/17 15.5. Patient reached good control on basal bolus insulin and likely will not be a candidate for control with oral meds UTI poa, levaquin compelte course, initial ua here was normal DERRICK on CKD stage III- -resolved Schizophrenia, h/o anxiety, agitation Zyprexa 2.5 mg PO BID and Ativan 0.5 mg PO QID H/o epilepsy gabapentin 100 mg PO TID, helmet for head protection Hypothyroidism clinically stable Synthroid 75 mcg PO qd Chronic constipation Senna 15 mg PO qd and Miralax qd DVT prophylaxis-Heparin 5000 units SC q12h -Level I, FULL RESUSCITATION STATUS Total Time Spent: Greater than 30 minutes This includes examination of the patient, discharge planning, medication reconciliation, and communication with other providers. Discharge Instructions Please refer to the electronic Patient Visit Report (Discharge Instructions) for additional information.
[2017-05-13 09:42] LABS: BUN/CREATININE RATIO 17.1 (10-20); CALCIUM 8.7 mg/dl (8.5-10.1); CREATININE 1.3 mg/dl (0.60-1.20); POTASSIUM 4.4 mmol/L (3.5-5.1)
[2017-05-13 16:29] VITALS: PULSE 98; TEMP 36.7; O2SAT 98
[2017-05-13] MEDS: LEVOFLOXACIN / D5W 250 MG in PREMIXED IN D5W 50 ML IV SCH (16:53)
--- NOTE | 2017-05-13 17:21 | Progress Note ---
Progress Note Date of Service May 13, 2017. Progress Note discharge rebutted by [facility], not enough staff, will see if staffing permits
[2017-05-13 19:04] VITALS: BP 118/73
[2017-05-13] MEDS: LORATADINE 10 MG TAB PO SCH (20:51)
[2017-05-13 22:48] VITALS: BP 137/77; PULSE 87; TEMP 36.8; O2SAT 97
[2017-05-14] MEDS ORDERED: NURSING VERBAL MED ORDER ONE ×2 (02:30→07:45)
[2017-05-14] MEDS: LEVOTHYROXINE 75 MCG TAB PO SCH (06:56)
[2017-05-14 07:17] VITALS: BP 119/77; PULSE 89; TEMP 37.1; O2SAT 96
[2017-05-14 07:24] LABS: HEMATOCRIT 32.6 % (37-47); MEAN CELL VOLUME 90.6 fL (80-100); MEAN CORPUSCULAR HEMOGLOBIN 29.2 pg (25-34); MEAN CORPUSCULAR HGB CONC 32.2 g/dl (32-36); MEAN PLATELET VOLUME 12.1 fL (7.4-10.4); PLATELET COUNT 133 K/uL (130-400); WHITE BLOOD COUNT 7.45 K/uL (4.8-10.8)
[2017-05-14] MEDS: LORAZEPAM 0.5 MG TAB PO SCH ×2 (08:02→12:28)
[2017-05-14] MEDS: GABAPENTIN 100 MG CAP PO SCH ×2 (08:03→12:29)
[2017-05-14] MEDS: SENNA 8.6 MG TAB PO SCH (08:04)
[2017-05-14] MEDS: POLYETHYLENE (MIRALAX) 17 GM PACK PO SCH (08:05)
[2017-05-14] MEDS: OLANZAPINE 2.5 MG TAB PO SCH (08:05)
[2017-05-14] MEDS: INSULIN GLARGINE SOLOSTAR 100 UNITS/ML 3 ML PEN SC SCH (08:07)
[2017-05-14] MEDS: HEPARIN SOD 5000 UNIT/0.5 ML CARP SQ SCH (08:08)
[2017-05-14 08:30] LABS: BUN/CREATININE RATIO 17.3 (10-20); CALCIUM 8.7 mg/dl (8.5-10.1); CREATININE 1.5 mg/dl (0.60-1.20); POTASSIUM 4.7 mmol/L (3.5-5.1)
--- NOTE | 2017-05-14 08:34 | Pharmacy Progress Note ---
Glycemic Control Progress Note Date of Service May 14, 2017. Scope Glycemic Pharmacist consulted for glycemic control to write orders per [facility] inpatient glycemic control protocol. Objective Accuchecks BSG (last 24hrs): Test 05/13/17 11:25 05/13/17 16:42 05/13/17 19:32 05/14/17 06:47 Bedside Glucose 243 mg/dl (70-90) 116 mg/dl (70-90) 156 mg/dl (70-90) Test 05/14/17 07:37 05/14/17 07:38 Bedside Glucose 503 mg/dl (70-90) 480 mg/dl (70-90) Recent Pertinent Medications The patient is currently receiving: * Basal insulin: Lantus 22 units QAM * Correctional Insulin: Novolog Correction per scale ACHS Goal Range: Low 140 mg/dL - High 180 mg/dL Correction Factor: 20 mg/dL/unit * Prandial insulin: Per carb ratio of 1 unit per 7 grams CHO consumed Outpatient Anti-Diabetic Meds Oral Agents Basal Insulin {just started antidiabetic regimen 05/09/17} Assessment & Plan ASSESSMENT: * See progress note from 05/11/17 for more background info, in short: * Pt receiving SQ basal bolus insulin regimen for hyperglycemia secondary to baseline DM (outpatient regimen on hold) & stress/infection * BSGs ranging 116-243 mg/dl over the past 24 hours * Only high BSG yesterday was lunch time so BSGs had very much started to improve on current regimen * Unfortunately, BSG this AM ~500 * Per nursing, patient was given multiple servings of ice cream and candy bars throughout the night * Spoke with nursing and advised this is not acceptable practice in a uncontrolled diabetic with risk of DKA etc. * Since patient consumed a high amount of uncovered carbs, this BSG is not surprising * Changes needed to insulin regimen: * Can not react to Fasting BSG to titrate insulin as this is NOT a fasting BSG. Continue current Lantus and re-evaluate in the AM. * Post-prandial BSGs have responded to most recent adjustment. Continue with no changes. * Estimating total daily insulin dose to be ~ 40-50 units. Will continue to titrate regimen based on BSG trends. * Consider IV insulin today if BSGs do not respond accordingly due to snacking overnight. PLAN FOR INPATIENT GLYCEMIC CONTROL: * Oral Agents * Continue to hold outpatient oral diabetes medications. * Basal insulin * Lantus 22 units SQ daily * Bolus insulin * NovoLog per scale ACHS + 00,04 checks for severe hyperglycemia this AM * Goal Range: Low 140 mg/dL - High 180 mg/dL {higher goal range for significantly elevated A1c, pt may feel hypo at otherwise normal BSGs} * Correction Factor: 20 mg/dL/unit * Nutritional / Prandial insulin per carb ratio of 1 unit per 7 grams CHO consumed * Please note that the plan above was derived based on current level of insulin resistance and hospital stress. These recommendations are appropriate for inpatient admission only. Plan of care upon discharge will need to be reassessed to avoid potential outpatient hypo/hyperglycemia. Thank you.
[2017-05-14] MEDS: INSULIN ASPART 100 UNITS/ML 3 ML PEN SC SCH ×2 (08:51→12:28)
[2017-05-14 09:16] LABS: BETA-HYDROXYBUTYRATE 0.97 mg/dL (0.2-2.81)
[2017-05-14 14:16] VITALS: BP 119/77; PULSE 89; TEMP 37.1; O2SAT 96
[2017-05-15] MEDS ORDERED: INSULIN ASPART 100 UNITS/ML 3 ML PEN SC SCH
== END 2017-05-14 15:10 | DRG 638 ==
LOC: EDBD 10:33 → C.EDC 10:35 → C.2T 16:01 → ENRESERV 16:12 → C.4E 05-12 15:11
PROVIDERS: ADMIT Internal Medicine; ATTEND Internal Medicine
DX: E11.65 Type 2 diabetes mellitus with hyperglycemia (principal); N17.9 Acute kidney failure, unspecified; N39.0 Urinary tract infection, site not specified; B37.0 Candidal stomatitis; F02.81 Dementia in other diseases classified elsewhere, unspecified severity, with behavioral disturbance; N18.3 Chronic kidney disease, stage 3 (moderate); F41.9 Anxiety disorder, unspecified; G40.909 Epilepsy, unspecified, not intractable, without status epilepticus; E03.9 Hypothyroidism, unspecified; K59.00 Constipation, unspecified; F32.9 Major depressive disorder, single episode, unspecified; I12.9 Hypertensive chronic kidney disease with stage 1 through stage 4 chronic kidney disease, or unspecified chronic kidney disease; E78.5 Hyperlipidemia, unspecified; G30.9 Alzheimer's disease, unspecified; F20.9 Schizophrenia, unspecified; R13.19 Other dysphagia; Z91.81 History of falling; Z79.899 Other long term (current) drug therapy; Z79.84 Long term (current) use of oral hypoglycemic drugs; Z79.4 Long term (current) use of insulin

== ENCOUNTER → 2017-07-31 | Outpatient (CLI) | payer OTHER ==
[~2017-07-31] MED LIST changes: +CLR10 PO; -ERYOPO OPL; +INSDGI SC; +INSDGIPEN SC; +LEVO-17 PO; -NTRS PO; +NVLGIPEN SC; -SUPPLEMENT SHAKE PO
[2017-07-31 08:51] LABS: ALT/SGPT 26 U/L (12-78); BLOOD UREA NITROGEN 35 mg/dl (7-18); BUN/CREATININE RATIO 25.4 (10-20); CALCIUM 8.9 mg/dl (8.5-10.1); CARBON DIOXIDE 23 mmol/L (21-32); CHLORIDE 107 mmol/L (98-107); CREATININE 1.39 mg/dl (0.60-1.20); GLUCOSE 221 mg/dl (70-99); POTASSIUM 4.1 mmol/L (3.5-5.1); SODIUM 142 mmol/L (136-145)
[2017-07-31 09:02] LABS: ALKALINE PHOSPHATASE 63 U/L (45-117); AST/SGOT 21 U/L (15-37)
[2017-07-31 09:19] LABS: HEMATOCRIT 32.8 % (37-47); MEAN CELL VOLUME 89.9 fL (80-100); MEAN CORPUSCULAR HEMOGLOBIN 29.3 pg (25-34); MEAN CORPUSCULAR HGB CONC 32.6 g/dl (32-36); MEAN PLATELET VOLUME 12.1 fL (7.4-10.4); PLATELET COUNT 128 K/uL (130-400); RED BLOOD COUNT 3.65 M/uL (4.2-5.4); WHITE BLOOD COUNT 8.79 K/uL (4.8-10.8)
[2017-07-31 09:48] LABS: BASO % 0.3 %; BASO ABS # 0.03 K/uL (0-0.2); COMPLETE YES; EOS % 3.8 %; IG% 0.2 %; LYMPH % 29.7 %; LYMPH ABS # 2.61 K/uL (1.2-3.4); MONO % 6.9 %; NEUT % 59.1 %; PLT ESTIMATE DECREASED; TOXIC GRANULATION 1+
[2017-07-31 10:03] LABS: ESTIMATED AVERAGE GLUCOSE 143 mg/dl; HA1C FLAG Normal (Normal)
== END ==
LOC: C.LABUPHEI 08:16
PROVIDERS: ATTEND Family Medicine
DX: E11.9 Type 2 diabetes mellitus without complications (principal); N18.3 Chronic kidney disease, stage 3 (moderate); D52.9 Folate deficiency anemia, unspecified; E03.9 Hypothyroidism, unspecified

== ENCOUNTER → 2017-11-02 | Outpatient (CLI) | payer OTHER ==
[2017-11-02 08:31] LABS: BASO % 0.5 %; BASO ABS # 0.04 K/uL (0-0.2); EOS % 4.1 %; EOS ABS # 0.36 K/uL (0-0.5); HEMATOCRIT 32.2 % (37-47); HEMOGLOBIN 10.6 g/dL (12.0-16.0); IG# 0.03 K/uL (0.00-0.02); LYMPH % 29.9 %; LYMPH ABS # 2.63 K/uL (1.2-3.4); MEAN CELL VOLUME 91.5 fL (80-100); MEAN CORPUSCULAR HEMOGLOBIN 30.1 pg (25-34); MEAN CORPUSCULAR HGB CONC 32.9 g/dl (32-36); MEAN PLATELET VOLUME 12.2 fL (7.4-10.4); MONO % 8.2 %; MONO ABS # 0.72 K/uL (0.11-0.59); NEUT ABS # 5.02 K/uL (1.4-6.5); PLATELET COUNT 138 K/uL (130-400); RED CELL DISTRIBUTION WIDTH CV 14.3 % (11.5-14.5); RED CELL DISTRIBUTION WIDTH SD 47.4 fL (36.4-46.3)
[2017-11-02 08:35] LABS: ALBUMIN 3.2 gm/dl (3.4-5.0); BLOOD UREA NITROGEN 41 mg/dl (7-18); CALCIUM 8.7 mg/dl (8.5-10.1); CARBON DIOXIDE 24 mmol/L (21-32); CREATININE 1.37 mg/dl (0.60-1.20); GLUCOSE 294 mg/dl (70-99); POTASSIUM 4.2 mmol/L (3.5-5.1); SODIUM 140 mmol/L (136-145)
[2017-11-02 08:46] LABS: ALKALINE PHOSPHATASE 76 U/L (45-117); ALT/SGPT 33 U/L (12-78); AST/SGOT 21 U/L (15-37); TOTAL PROTEIN 6.3 gm/dl (6.4-8.2)
[2017-11-02 09:25] LABS: HEMOGLOBIN A1C 6.3 % (4.5-5.6)
== END | disposition home or self-care (01) ==
LOC: C.LABUPHEI 07:45
PROVIDERS: ATTEND Nurse Practitioner Family
DX: E11.9 Type 2 diabetes mellitus without complications (principal); E03.9 Hypothyroidism, unspecified; N18.3 Chronic kidney disease, stage 3 (moderate); D52.9 Folate deficiency anemia, unspecified; I12.9 Hypertensive chronic kidney disease with stage 1 through stage 4 chronic kidney disease, or unspecified chronic kidney disease

== ENCOUNTER → 2018-02-20 | Outpatient (CLI) | payer OTHER ==
[~2018-02-20] MED LIST changes: +GABA100C13 PO; -GABA1CAP PO
[2018-02-20 08:44] LABS: HEMATOCRIT 37.3 % (37-47); HEMOGLOBIN 12.3 g/dL (12.0-16.0); MEAN CELL VOLUME 89.2 fL (80-100); MEAN CORPUSCULAR HEMOGLOBIN 29.4 pg (25-34); MEAN PLATELET VOLUME 12.3 fL (7.4-10.4); PLATELET COUNT 131 K/uL (130-400); RED CELL DISTRIBUTION WIDTH CV 13.7 % (11.5-14.5); RED CELL DISTRIBUTION WIDTH SD 45.1 fL (36.4-46.3); WHITE BLOOD COUNT 7.59 K/uL (4.8-10.8)
[2018-02-20 08:50] LABS: ALBUMIN 3.4 gm/dl (3.4-5.0); ALT/SGPT 27 U/L (12-78); AST/SGOT 23 U/L (15-37); BLOOD UREA NITROGEN 30 mg/dl (7-18); CALCIUM 8.8 mg/dl (8.5-10.1); CARBON DIOXIDE 25 mmol/L (21-32); CREATININE 1.24 mg/dl (0.60-1.20); GLUCOSE 150 mg/dl (70-99); POTASSIUM 3.9 mmol/L (3.5-5.1); SODIUM 141 mmol/L (136-145)
[2018-02-20 08:53] LABS: ALKALINE PHOSPHATASE 68 U/L (45-117); TOTAL PROTEIN 6.8 gm/dl (6.4-8.2)
[2018-02-20 09:23] LABS: HEMOGLOBIN A1C 6.7 % (4.5-5.6)
== END ==
LOC: C.LABUPHEI 07:55
PROVIDERS: ATTEND Nurse Practitioner Family
DX: F33.8 Other recurrent depressive disorders (principal); E11.9 Type 2 diabetes mellitus without complications; N18.3 Chronic kidney disease, stage 3 (moderate)

== ENCOUNTER → 2018-05-21 | Outpatient (CLI) | payer OTHER ==
[~2018-05-21] MED LIST changes: +GABA-1693 PO; -GABA100C13 PO
[2018-05-21 10:04] LABS: BASO % 0.7 %; BASO ABS # 0.05 K/uL (0-0.2); EOS % 4.2 %; EOS ABS # 0.32 K/uL (0-0.5); HEMATOCRIT 34.8 % (37-47); IG# 0.03 K/uL (0.00-0.02); LYMPH % 34.8 %; LYMPH ABS # 2.64 K/uL (1.2-3.4); MEAN CELL VOLUME 91.8 fL (80-100); MEAN CORPUSCULAR HGB CONC 31.6 g/dl (32-36); MEAN PLATELET VOLUME 12.6 fL (7.4-10.4); MONO % 7.1 %; MONO ABS # 0.54 K/uL (0.11-0.59); NEUT % 52.8 %; PLATELET COUNT 138 K/uL (130-400); RED CELL DISTRIBUTION WIDTH CV 14.3 % (11.5-14.5); RED CELL DISTRIBUTION WIDTH SD 48.6 fL (36.4-46.3); WHITE BLOOD COUNT 7.58 K/uL (4.8-10.8)
[2018-05-21 10:20] LABS: ALBUMIN 3.3 gm/dl (3.4-5.0); ALKALINE PHOSPHATASE 61 U/L (45-117); ALT/SGPT 19 U/L (12-78); AST/SGOT 16 U/L (15-37); BLOOD UREA NITROGEN 25 mg/dl (7-18); CARBON DIOXIDE 26 mmol/L (21-32); CREATININE 1.42 mg/dl (0.60-1.20); GLUCOSE 196 mg/dl (70-99); POTASSIUM 3.9 mmol/L (3.5-5.1); SODIUM 143 mmol/L (136-145); TOTAL PROTEIN 6.1 gm/dl (6.4-8.2)
[2018-05-21 11:54] LABS: HEMOGLOBIN A1C 6.3 % (4.5-5.6)
== END ==
LOC: C.LABUPHEI 08:57
PROVIDERS: ATTEND Nurse Practitioner Family
DX: I12.9 Hypertensive chronic kidney disease with stage 1 through stage 4 chronic kidney disease, or unspecified chronic kidney disease (principal); E11.22 Type 2 diabetes mellitus with diabetic chronic kidney disease; N18.3 Chronic kidney disease, stage 3 (moderate)